=== PATIENT | female | born 1935 | race Caucasian/White ===

== ENCOUNTER 2018-11-28 17:11 | Inpatient (IN) | payer OTHER ==
[2018-11-28] MEDS ORDERED: SODIUM CHLORIDE 0.9% 1000 ML INFUS.BAG IV ONE (17:48)
[2018-11-28] MEDS ORDERED: ACETAMINOPHEN 1000 MG/100 ML VIAL (NON FORMULARY) IVPB ONE (17:48)
[2018-11-28] MEDS ORDERED: ACETAMINOPHEN INJECTION 100 ML IVPB ONE (17:57)
[2018-11-28 18:26] LABS: BASO % 0.5 % (0-2.0); EOS % 1.7 % (0-4.5); HEMATOCRIT 35.9 % (32.4-45.2); HEMOGLOBIN 11.8 GM/dl (10.7-15.3); MCHC 32.8 g/dl (32.0-36.0); MEAN CELL VOLUME 85.3 fl (80-96); MEAN PLT VOLUME 7.4 fl (7.5-11.1); MONO % 4.2 % (3.8-10.2); NEUT % 77.6 % (42.8-82.8); PLATELET COUNT 364 K/MM3 (134-434); RBC 4.21 M/mm3 (3.60-5.2); RDW 13.8 % (11.6-15.6); WHITE BLOOD COUNT 9.5 K/mm3 (4.0-10.8)
[2018-11-28 18:35] LABS: BILIRUBIN,TOTAL 2.1 mg/dl (0.2-1); CALCIUM 9.6 mg/dl (8.5-10); CREATININE 0.7 mg/dl (0.55-1.3); POTASSIUM 4.3 mmol/L (3.5-5.1); TOT PROT 7.9 g/dl (6.4-8.2)
[2018-11-28 18:49] LABS: EPITHELIAL CELLS FEW /hpf
--- NOTE | 2018-11-28 19:18 | PDOC ---
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 Patient reports 3 weeks of N/V with loose stools, saw her PCP 2 weeks ago who recommended drinking lots of fluids and started treating her with 5 days of an unknown antibiotic. Denies any urinary sx. Has continued to have at least 1 loose stool per day with limited PO intake and nausea/vomiting with attempted meals and fluid intakefor the last 3 days. Vomit is NBNB, stools are loose but non-bloody. Yesterday was getting cardiac echo yesterday per PCP request, no cardiac hx, but was having epigastric pain that radiated across R abdomen to back that was relieved when tech placed probe on her abdomen, thought it was gas. Dana fine this morning, but started having same epigastric/RUQ abdominal pain this afternoon that went away over time. Denies fever/chills, headache, chest pain, SOB, weakness. Has history of UC but stools not bloody, not on any medications at this time. Abd surgeries include hysterectomy and appy. <Talib Tarango - Last Filed: 11/28/18 19:09> <Dallas Krause - Last Filed: 12/03/18 14:58> - General Chief Complaint: Pain Stated Complaint: ABDOMINAL PAIN AND RIGHT SIDE PAIN Time Seen by Provider: 11/28/18 17:35 Past History - Past Medical History COPD: No Diabetes: Yes HTN: Yes Hypercholesterolemia: Yes - Surgical History Appendectomy: Yes - Suicide/Smoking/Psychosocial Hx Smoking History: Never smoked Information on smoking cessation initiated: No Hx Alcohol Use: No Drug/Substance Use Hx: No <Talib Tarango - Last Filed: 11/28/18 19:09> <Dallas Krause - Last Filed: 12/03/18 14:58> - Past Medical History Allergies/Adverse Reactions: Allergies Allergy/AdvReac Type Severity Reaction Status Date / Time No Known Allergies Allergy Unverified 11/28/18 17:13 Home Medications: Ambulatory Orders Amlodipine Besylate 5 mg PO DAILY 11/28/18 Aspirin 81 mg PO DAILY 11/28/18 Atorvastatin Ca [Lipitor] 10 mg PO HS 11/28/18 Brimonidine Tartrate [Alphagan P 0.1% -] 1 drop OS DAILY 11/28/18 Calcium Carbonate [Calcium] 500 mg PO DAILY 11/28/18 Cholecalciferol (Vitamin D3) [Vitamin D3 -] 2,000 unit PO DAILY 11/28/18 Colesevelam HCl 3 tab PO BID 11/28/18 Glipizide [Glipizide Xl] 2.5 mg PO DAILY 11/28/18 Losartan Potassium [Cozaar] 100 mg PO DAILY 11/28/18 Metoprolol Tartrate [Lopressor -] 25 mg PO DAILY 11/28/18 Metoprolol Tartrate [Lopressor] 50 mg PO DAILY 11/28/18 Multivit-Min/Iron/Folic/Lutein [Centrum Silver Women Tablet] 1 tab PO DAILY Warba-3/Dha/Epa/Fish Oil [Warba 3 500 Softgel] 1 each PO DAILY 11/28/18 Sitagliptin Phosphate [Januvia] 100 mg PO DAILY 11/28/18 Review of Systems - Review of Systems Constitutional: No: Symptoms Reported HEENTM: No: Symptoms Reported Respiratory: No: Symptoms reported Cardiac (ROS): No: Symptoms Reported ABD/GI: Yes: Diarrhea, Nausea, Vomiting. No: Constipated : No: Burning, Dysuria, Discharge, Frequency, Hematuria, Incontinence, Pain Musculoskeletal: No: Back Pain, Muscle Pain, Muscle Weakness Integumentary: No: Symptoms Reported Neurological: No: Headache, Numbness, Paresthesia, Tingling Endocrine: No: Symptoms Reported Hematologic/Lymphatic: No: Symptoms Reported All Other Systems: Reviewed and Negative <Talib Tarango - Last Filed: 11/28/18 19:09> *Physical Exam - Vital Signs Last Vital Signs Temp Pulse Resp BP Pulse Ox 98.5 F 70 16 172/74 H 100 11/28/18 17:13 11/28/18 17:13 11/28/18 17:13 11/28/18 17:13 11/28/18 17:13 - Physical Exam General Appearance: Yes: Nourished, Appropriately Dressed. No: Apparent Distress HEENT: positive: EOMI, Normal Voice, Symmetrical, Pharynx Normal. negative: Scleral Icterus (R), Scleral Icterus (L), Pharyngeal Erythema, Tonsillar Exudate , Tonsillar Erythema, Rhinorrhea Neck: positive: Tender, Trachea midline, Supple. negative: Normal Thyroid, Lymphadenopathy (R), Lymphadenopathy (L) Respiratory/Chest: positive: Lungs Clear, Normal Breath Sounds. negative: Respiratory Distress Cardiovascular: positive: Regular Rhythm, Regular Rate. negative: Edema, Murmur Gastrointestinal/Abdominal: positive: Normal Bowel Sounds, Soft, Other (well- healed lap scar below umbilicus, negative jorge's). negative: Tender, Guarding , Rebound, Hernia Musculoskeletal: positive: Normal Inspection. negative: CVA Tenderness Extremity: positive: Normal Capillary Refill, Normal Inspection, Normal Range of Motion. negative: Tender Integumentary: positive: Normal Color, Dry, Warm Neurologic: positive: Fully Oriented, Alert, Normal Mood/Affect, Normal Response <Talib Tarango - Last Filed: 11/28/18 19:09> - Vital Signs Last Vital Signs Temp Pulse Resp BP Pulse Ox 97.5 F L 67 18 141/58 L 100 12/03/18 14:56 12/03/18 14:56 12/03/18 14:56 12/03/18 14:56 12/03/18 14:05 <Dallas Krause - Last Filed: 12/03/18 14:58> ED Treatment Course - LABORATORY CBC & Chemistry Diagram: 11/28/18 18:10 11/28/18 18:10 - ADDITIONAL ORDERS Additional order review: Laboratory Results 11/28/18 11/28/18 11/28/18 18:10 18:10 18:10 Sodium Potassium Chloride Carbon Dioxide Anion Gap BUN Creatinine Est GFR (CKD-EPI)AfAm Est GFR (CKD-EPI)NonAf Random Glucose Calcium Total Bilirubin AST ALT Alkaline Phosphatase Troponin I 0.03 Total Protein Albumin Urine Color Yellow Urine Appearance Clear Urine pH 5.0 Urine Protein Trace Urine Glucose (UA) Negative Urine Ketones Negative Urine Blood 2+ H Urine Nitrite Negative Urine Bilirubin Negative Urine Urobilinogen 0.2 Ur Leukocyte Esterase Negative Urine RBC 5-10 Urine WBC 0-2 Ur Transition Epith Cell Few Urine Bacteria Rare Stool Occult Blood Negative 11/28/18 18:10 Sodium 142 Potassium 4.3 Chloride 107 Carbon Dioxide 26 Anion Gap 9 BUN 16.0 Creatinine 0.7 Est GFR (CKD-EPI)AfAm 93.52 Est GFR (CKD-EPI)NonAf 80.69 Random Glucose 148 H Calcium 9.6 Total Bilirubin 2.1 H AST 211 H ALT 248 H Alkaline Phosphatase 267 H Troponin I Total Protein 7.9 Albumin 4.0 Urine Color Urine Appearance Urine pH Urine Protein Urine Glucose (UA) Urine Ketones Urine Blood Urine Nitrite Urine Bilirubin Urine Urobilinogen Ur Leukocyte Esterase Urine RBC Urine WBC Ur Transition Epith Cell Urine Bacteria Stool Occult Blood 11/28/18 18:10 RBC 4.21 MCV 85.3 MCHC 32.8 RDW 13.8 MPV 7.4 L Neutrophils % 77.6 Lymphocytes % 16.0 Monocytes % 4.2 Eosinophils % 1.7 Basophils % 0.5 - RADIOLOGY Radiology Studies Ordered: Category Date Time Status ABDOMEN & PELVIS CT WITH CONTR [CT] Stat CT Scan 11/28/18 18:14 Ordered CHEST PA & LAT [RAD] Stat Radiology 11/28/18 18:13 Ordered ABDOMEN US -LIMITED [US] Stat Ultrasound 11/28/18 18:44 Ordered - Medications Given in the ED: ED Medications Discontinued Medications Generic Name Dose Route Start Last Admin Trade Name Freq PRN Reason Stop Dose Admin Acetaminophen 1,000 mg 11/28/18 17:48 11/28/18 18:17 Ofirmev Injection - IVPB 11/28/18 17:49 1,000 mg ONCE ONE Administration Sodium Chloride 1,000 ml 11/28/18 17:48 11/28/18 18:16 Normal Saline - IV 11/28/18 17:49 1,000 ml ONCE ONE Administration <Talib Tarango - Last Filed: 11/28/18 19:09> - LABORATORY CBC & Chemistry Diagram: 12/03/18 06:54 12/03/18 06:54 - ADDITIONAL ORDERS Additional order review: 11/28/18 18:10 Urine Culture - Final Urine - Urine Clean Catch Klebsiella Pneumoniae 11/28/18 18:10 RBC 4.21 MCV 85.3 MCHC 32.8 RDW 13.8 MPV 7.4 L Neutrophils % 77.6 Lymphocytes % 16.0 Monocytes % 4.2 Eosinophils % 1.7 Basophils % 0.5 - Medications Given in the ED: ED Medications Discontinued Medications Generic Name Dose Route Start Last Admin Trade Name Freq PRN Reason Stop Dose Admin Acetaminophen 1,000 mg 11/28/18 17:48 11/28/18 18:17 Ofirmev Injection - IVPB 11/28/18 17:49 1,000 mg ONCE ONE Administration Acetaminophen 1,000 mg 12/01/18 08:25 12/01/18 08:42 Ofirmev Injection - IVPB 1,000 mg Q6H PRN Administration PAIN OR FEVER Amlodipine Besylate 5 mg 11/29/18 10:00 12/03/18 09:01 Norvasc - PO 5 mg DAILY PEEWEE Administration Brimonidine Tartrate 1 drop 11/29/18 10:00 12/03/18 09:30 Alphagan P 0.1% - OS 1 drop DAILY PEEWEE Administration Piperacillin Sod/Tazobactam 100 mls @ 200 mls/hr 11/28/18 22:13 11/28/18 22: 30 Sod 4.5 gm/ Dextrose IVPB 11/28/18 22:42 200 mls/hr ONCE ONE Administration Protocol Piperacillin Sod/Tazobactam 50 mls @ 100 mls/hr 11/29/18 06:00 11/29/18 06:23 Sod 2.25 gm/ Dextrose IVPB 11/29/18 22:29 100 mls/hr Q8H PEEWEE Administration Protocol Sodium Chloride 1,000 mls @ 100 mls/hr 11/28/18 23:24 12/03/18 09:32 Normal Saline - IV 100 mls/hr ASDIR PEEWEE Administration Piperacillin Sod/Tazobactam 50 mls @ 100 mls/hr 11/29/18 10:30 12/03/18 09:02 Sod 3.375 gm/ Dextrose IVPB 100 mls/hr Q8H-IV PEEWEE Administration Protocol Indomethacin 50 mg 11/29/18 13:21 11/29/18 19:22 Indocin Suppository - MD 11/29/18 13:22 Not Given ONCE ONE Indomethacin 100 mg 11/29/18 13:45 11/29/18 19:22 Indocin Suppository - MD 11/29/18 13:46 Not Given ONCE ONE Insulin Aspart 1 units 11/29/18 07:00 11/30/18 11:15 Novolog Vial SQ Not Given ACHS [facility] Protocol Insulin Aspart 1 vial 11/30/18 22:00 12/03/18 06:18 Novolog Vial Sliding Scale - SQ Not Given ACHS [facility] Protocol Lorazepam 0.5 mg 11/29/18 08:45 11/29/18 10:08 Ativan Injection - IVPUSH 11/29/18 08:46 0.5 mg ONCE ONE Administration Losartan Potassium 100 mg 11/29/18 10:00 12/03/18 09:00 Cozaar - PO 100 mg DAILY PEEWEE Administration Magnesium Sulfate 1 gm 12/02/18 09:15 12/02/18 10:06 Magnesium Sulfate IVPB 12/02/18 09:16 1 gm ONCE ONE Administration Metoprolol Tartrate 50 mg 11/29/18 10:00 12/03/18 09:00 Lopressor - PO 50 mg DAILY PEEWEE Administration Metoprolol Tartrate 25 mg 11/29/18 22:00 12/02/18 21:12 Lopressor - PO 25 mg HS PEEWEE Administration Pneumococcal 13-Valent Conj Vacc 0.5 ml 11/29/18 10:00 11/29/18 09:50 Prevnar 13 Syringe - IM 11/29/18 10:01 Not Given .ONCE ONE Potassium Chloride 40 meq 12/02/18 09:00 12/02/18 10:06 Potassium Chloride Oral Liquid PO 12/02/18 09:01 40 meq ONCE ONE Administration Sodium Chloride 1,000 ml 11/28/18 17:48 11/28/18 18:16 Normal Saline - IV 11/28/18 17:49 1,000 ml ONCE ONE Administration Tramadol HCl 50 mg 12/01/18 03:37 12/01/18 03:52 Ultram - PO 12/01/18 03:38 50 mg ONCE ONE Administration <Dallas Krause - Last Filed: 12/03/18 14:58> Medical Decision Making - Medical Decision Making 11/28/18 18:09 Preeti Sung is an 83F with PMH HTN, NIDDM, 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 Given patient history of epigastric pain radiating across R side to back in an elderly woman with DM, ddx includes choledocholithiasis/cholecystitis/ cholangitis vs. pancreatitis vs. AAA vs. KS vs. gastroenteritis vs. C.diff vs. gastritis vs. UTI vs. Pyelo vs. renal stone. Will evaluate with CMP, CBC, CP, ECG, CXR, lipase, hemoccult, UA. 11/28/18 18:23 CT abd with PO and IV contrast ordered given UC history and to evaluate for abd pain in high risk pt. 11/28/18 18:30 UA shows blood in urine, PO contrast cancelled. 11/28/18 19:04 Labs show no increased WBC but has transaminitis concerning for gallbladder pathology such as stone obstruction. ECG WNL, CP WNL. UA shows 2+ blood concerning for renal stone. POCUS reveals moderate L-sided hydronephrosis with grossly normal R kidney and normal gallbladder without pericholecystic fluid, CBD dilation, or stones noted. Will proceed with CT abd. Signed out to Dr. Neal and medical student July for continuation of care. <Talib Tarango - Last Filed: 11/28/18 19:09> *DC/Admit/Observation/Transfer <Talib Tarango - Last Filed: 11/28/18 19:09> <Dallas Krause - Last Filed: 12/03/18 14:58> Diagnosis at time of Disposition: Abdominal pain Qualifiers: Abdominal location: epigastric Qualified Code(s): R10.13 - Epigastric pain - Discharge Dispostion Disposition: HOME Condition at time of disposition: Fair
--- NOTE | 2018-11-28 20:45 | PDOC ---
*Physical Exam - Vital Signs Last Vital Signs Temp Pulse Resp BP Pulse Ox 98 F 72 16 179/82 H 100 11/28/18 19:36 11/28/18 19:36 11/28/18 19:36 11/28/18 19:36 11/28/18 19:36 ED Treatment Course - LABORATORY CBC & Chemistry Diagram: 11/28/18 18:10 11/28/18 18:10 - ADDITIONAL ORDERS Additional order review: Laboratory Results 11/28/18 11/28/18 11/28/18 18:10 18:10 18:10 Sodium Potassium Chloride Carbon Dioxide Anion Gap BUN Creatinine Est GFR (CKD-EPI)AfAm Est GFR (CKD-EPI)NonAf Random Glucose Calcium Total Bilirubin AST ALT Alkaline Phosphatase Troponin I 0.03 Total Protein Albumin Lipase 111 Urine Color Urine Appearance Urine pH Urine Protein Urine Glucose (UA) Urine Ketones Urine Blood Urine Nitrite Urine Bilirubin Urine Urobilinogen Ur Leukocyte Esterase Urine RBC Urine WBC Ur Transition Epith Cell Urine Bacteria Stool Occult Blood Negative 11/28/18 11/28/18 18:10 18:10 Sodium 142 Potassium 4.3 Chloride 107 Carbon Dioxide 26 Anion Gap 9 BUN 16.0 Creatinine 0.7 Est GFR (CKD-EPI)AfAm 93.52 Est GFR (CKD-EPI)NonAf 80.69 Random Glucose 148 H Calcium 9.6 Total Bilirubin 2.1 H AST 211 H ALT 248 H Alkaline Phosphatase 267 H Troponin I Total Protein 7.9 Albumin 4.0 Lipase Urine Color Yellow Urine Appearance Clear Urine pH 5.0 Urine Protein Trace Urine Glucose (UA) Negative Urine Ketones Negative Urine Blood 2+ H Urine Nitrite Negative Urine Bilirubin Negative Urine Urobilinogen 0.2 Ur Leukocyte Esterase Negative Urine RBC 5-10 Urine WBC 0-2 Ur Transition Epith Cell Few Urine Bacteria Rare Stool Occult Blood 11/28/18 18:10 RBC 4.21 MCV 85.3 MCHC 32.8 RDW 13.8 MPV 7.4 L Neutrophils % 77.6 Lymphocytes % 16.0 Monocytes % 4.2 Eosinophils % 1.7 Basophils % 0.5 - Medications Given in the ED: ED Medications Discontinued Medications Generic Name Dose Route Start Last Admin Trade Name Freq PRN Reason Stop Dose Admin Acetaminophen 1,000 mg 11/28/18 17:48 11/28/18 18:17 Ofirmev Injection - IVPB 11/28/18 17:49 1,000 mg ONCE ONE Administration Sodium Chloride 1,000 ml 11/28/18 17:48 11/28/18 18:16 Normal Saline - IV 11/28/18 17:49 1,000 ml ONCE ONE Administration Progress Note - Progress Note Progress Note: Care of this this patient was transferred [place] Dr. Krause and the EM resident at 1900 hrs. Patient is an elderly 83-year-old female with upper abdominal pain that is intermittent and somewhat colicky in nature. Patient has a workup pending. Patient does have a normal white count and her labs are remarkable for elevated liver enzymes, elevated bili. Patient has an ultrasound and CAT scan pending. Patient will be admitted to an inpatient bed for MRCP and GI consult *DC/Admit/Observation/Transfer Diagnosis at time of Disposition: Abdominal pain Qualifiers: Abdominal location: epigastric Qualified Code(s): R10.13 - Epigastric pain - Discharge Dispostion Condition at time of disposition: Fair Decision to Admit order: Yes - Referrals Referrals: Shakeel Wilhelm MD [Primary Care Provider] - - Patient Instructions - Post Discharge Activity
[2018-11-28] MEDS ORDERED: PIPERACILLIN/TAZOB 4.5 GM 4.5 GM in DEXTROSE 5%-WATER 100 ML IVPB ONE (22:13)
[2018-11-28] MEDS ORDERED: PIPERACILLIN/TAZOBACTAM 4.5 GM VIAL IVPB ONE (22:32)
--- NOTE | 2018-11-28 22:43 | HP ---
CHIEF COMPLAINT: Nausea, vomiting, abdominal pain PCP: Dr. Wilhelm HISTORY OF PRESENT ILLNESS: 83 year-old female with a PMH significant for HTN, Type II NIDDM, and ulcerative colitis who presented to ED today for evaluation of nausea, vomiting, and abdominal pain. About three weeks ago patient began experiencing malaise, nausea, and intermittent episodes of vomiting after eating. She went to see her PCP several times during this period. He did blood work which was reportedly unremarkable. Urinalysis showed a UTI and patient completed a 5-day course of macrobid. The symptoms persisted. Over the past several days the patient also developed abdominal pain focused in the RUQ. Today the RUQ pain began radiating to the back as well. She has had several episodes of diarrhea over the past 3 weeks as well. Patient was advised by PCP to come to the ED. Patient denies fever, sweats, chills. 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 [employer] Smoking: no Alcohol: no Drugs: no Family History: Mother 86 Parkinsons; father 63 heart problems; brother alive 79 with leukemia; children, grandchildren, greatgrandchildren a&w Allergies No Known Allergies Allergy (Unverified 11/28/18 17:13) HOME MEDICATIONS: Home Medications Medication Instructions Recorded Amlodipine Besylate 5 mg PO DAILY 11/28/18 Aspirin 81 mg PO DAILY 11/28/18 Atorvastatin Ca [Lipitor] 10 mg PO HS 11/28/18 Brimonidine Tartrate [Alphagan P 1 drop OS DAILY 11/28/18 0.1% -] Calcium Carbonate [Calcium] 500 mg PO DAILY 11/28/18 Cholecalciferol (Vitamin D3) 2,000 unit PO DAILY 11/28/18 [Vitamin D3 -] Colesevelam HCl 3 tab PO BID 11/28/18 Glipizide [Glipizide Xl] 2.5 mg PO DAILY 11/28/18 Losartan Potassium [Cozaar] 100 mg PO DAILY 11/28/18 Metoprolol Tartrate [Lopressor -] 25 mg PO DAILY 11/28/18 Metoprolol Tartrate [Lopressor] 50 mg PO DAILY 11/28/18 Multivit-Min/Iron/Folic/Lutein 1 tab PO DAILY 11/28/18 [Centrum Silver Women Tablet] [place]-3/Dha/Epa/Fish Oil [[place] 3 1 each PO DAILY 11/28/18 500 Softgel] Sitagliptin Phosphate [Januvia] 100 mg PO DAILY 11/28/18 REVIEW OF SYSTEMS CONSTITUTIONAL: +malaise, loss of appetite Absent: fever, chills, diaphoresis, generalized weakness, weight change HEENT: Absent: rhinorrhea, nasal congestion, throat pain, throat swelling, difficulty swallowing, mouth swelling, ear pain, eye pain, visual changes CARDIOVASCULAR: Absent: chest pain, syncope, palpitations, irregular heart rate, lightheadedness , peripheral edema RESPIRATORY: Absent: cough, shortness of breath, dyspnea with exertion, orthopnea, wheezing, stridor, hemoptysis GASTROINTESTINAL: +nausea, vomiting, abdominal pain, diarrhea Absent: abdominal distension, constipation, melena, hematochezia GENITOURINARY: Absent: dysuria, frequency, urgency, hesitancy, hematuria, flank pain, genital pain MUSCULOSKELETAL: Absent: myalgia, arthralgia, joint swelling, back pain, neck pain SKIN: Absent: rash, itching, pallor HEMATOLOGIC/IMMUNOLOGIC: Absent: easy bleeding, easy bruising, lymphadenopathy, frequent infections ENDOCRINE: Absent: unexplained weight gain, unexplained weight loss, heat intolerance, cold intolerance NEUROLOGIC: Absent: headache, focal weakness or paresthesias, dizziness, unsteady gait, seizure, mental status changes, bladder or bowel incontinence PSYCHIATRIC: Absent: anxiety, depression, suicidal or homicidal ideation, hallucinations. PHYSICAL EXAMINATION Vital Signs - 24 hr 11/28/18 11/28/18 17:13 19:36 Temperature 98.5 F 98 F Pulse Rate 70 Pulse Rate [ 72 Radial] Respiratory 16 16 Rate Blood Pressure 172/74 H Blood Pressure 179/82 H [Arm] O2 Sat by Pulse 100 100 Oximetry (%) GENERAL: Awake, alert, and fully oriented, in no acute distress. HEAD: Normal with no signs of trauma. EYES: Pupils equal, round and reactive to light, extraocular movements intact, sclera anicteric, conjunctiva clear. LUNGS: Breath sounds equal, clear to auscultation bilaterally. No wheezes, and no crackles. No accessory muscle use. HEART: Regular rate and rhythm, S1 and S2 ABDOMEN: Soft, mild RUQ tenderness, not distended, normoactive bowel sounds, no guarding, no rebound tenderness MUSCULOSKELETAL: Normal range of motion at all joints. No bony deformities or tenderness. No CVA tenderness. UPPER EXTREMITIES: 2+ pulses, warm, well-perfused. No cyanosis. No clubbing. No peripheral edema. LOWER EXTREMITIES: 2+ pulses, warm, well-perfused. No calf tenderness. No peripheral edema. NEUROLOGICAL: Cranial nerves II-XII intact. Normal speech. Normal gait. Laboratory Results - last 24 hr 11/28/18 11/28/18 11/28/18 18:10 18:10 18:10 WBC 9.5 RBC 4.21 Hgb 11.8 Hct 35.9 MCV 85.3 MCH 28.0 MCHC 32.8 RDW 13.8 Plt Count 364 MPV 7.4 L Absolute Neuts (auto) 7.4 Neutrophils % 77.6 Lymphocytes % 16.0 Monocytes % 4.2 Eosinophils % 1.7 Basophils % 0.5 Sodium 142 Potassium 4.3 Chloride 107 Carbon Dioxide 26 Anion Gap 9 BUN 16.0 Creatinine 0.7 Est GFR (CKD-EPI)AfAm 93.52 Est GFR (CKD-EPI)NonAf 80.69 Random Glucose 148 H Calcium 9.6 Total Bilirubin 2.1 H AST 211 H ALT 248 H Alkaline Phosphatase 267 H Troponin I Total Protein 7.9 Albumin 4.0 Lipase Urine Color Yellow Urine Appearance Clear Urine pH 5.0 Urine Protein Trace Urine Glucose (UA) Negative Urine Ketones Negative Urine Blood 2+ H Urine Nitrite Negative Urine Bilirubin Negative Urine Urobilinogen 0.2 Ur Leukocyte Esterase Negative Urine RBC 5-10 Urine WBC 0-2 Ur Transition Epith Cell Few Urine Bacteria Rare Stool Occult Blood 11/28/18 11/28/18 11/28/18 18:10 18:10 18:10 WBC RBC Hgb Hct MCV MCH MCHC RDW Plt Count MPV Absolute Neuts (auto) Neutrophils % Lymphocytes % Monocytes % Eosinophils % Basophils % Sodium Potassium Chloride Carbon Dioxide Anion Gap BUN Creatinine Est GFR (CKD-EPI)AfAm Est GFR (CKD-EPI)NonAf Random Glucose Calcium Total Bilirubin AST ALT Alkaline Phosphatase Troponin I 0.03 Total Protein Albumin Lipase 111 Urine Color Urine Appearance Urine pH Urine Protein Urine Glucose (UA) Urine Ketones Urine Blood Urine Nitrite Urine Bilirubin Urine Urobilinogen Ur Leukocyte Esterase Urine RBC Urine WBC Ur Transition Epith Cell Urine Bacteria Stool Occult Blood Negative ASSESSMENT/PLAN: 83 year-old female with a PMH significant for HTN, Type II NIDDM, and ulcerative colitis. Admitted for acute calculus cholecystitis with dilated CBD. Acute calculus cholecystitis Dilated common bile duct Hyperbilirubinema Transaminitis --11/28 CTAP: CBD dilated to 1cm; gallblader overdistention; cholelithiasis --11/28 US: acute calculus cholecystitis --concern for choledocholelithiais --empiric Zosyn --MRCP ordered --ID consult --GI consult Dr. Rascon --place surgery consult in am Right hydroureteronephrosis --seen on CT --no obvious obstructing stone --signs on CT of pyelo v. current/recent obstruction --renal function presently stable --MRI ordered --antibiotics as above Hypertension --BP elevated in ED --continue amlodipine, metoprolol Type II NIDDM --Novolog sliding scale Ulcerative colitis --stable FEN Fluids: NS@100mL/hr Electrolytes: replete as indicated Nutrition: NPO DVT prophylaxis: avoid chemicl prophylaxis due to possible surgical intervention ; SCS, oob, ambulation Dispo: transfer to [facility] for MRCP possible ERCP. Full code. Visit type - Emergency Visit Emergency Visit: Yes ED Registration Date: 11/28/18 Care time: The patient presented to the Emergency Department on the above date and was hospitalized for further evaluation of their emergent condition. - New Patient This patient is new to me today: Yes Date on this admission: 11/29/18 - Critical Care Critical Care patient: No
[2018-11-28] MEDS ORDERED: SODIUM CHLORIDE 1,000 ML IV SCH (23:15)
[2018-11-29 01:29] VITALS: BMI 23.3
[2018-11-29] MEDS: SODIUM CHLORIDE 1,000 ML IV SCH ×2 (01:42→20:11)
[2018-11-29] MEDS ORDERED: PIPERACILLIN/TAZOB 2.25 GM 2.25 GM in DEXTROSE 5%-WATER - 50 ML IVPB SCH (06:00)
[2018-11-29] MEDS ORDERED: DEXTROSE 5%-WATER - 50 ML IVPB ONE ×3 (06:12→16:53)
[2018-11-29] MEDS ORDERED: PIPERACILLIN/TAZOBACTAM 2.25 GM VIAL IVPB ONE (06:12)
[2018-11-29] MEDS: INSULIN (NOVOLOG) ASPART 100 UNITS/ML 10ML VIAL SQ SCH ×4 (06:23→21:52)
--- NOTE | 2018-11-29 08:23 | PN ---
Progress Note, Physician Chief Complaint: Mild RUQ tenderness. Awaiting MRCP/ERCP History of Present Illness: 83 year-old female with a PMH significant for HTN, Type II NIDDM, and ulcerative colitis who presented to ED today for evaluation of nausea, vomiting, and abdominal pain. About three weeks ago patient began experiencing malaise, nausea, and intermittent episodes of vomiting after eating. She went to see her PCP several times during this period. He did blood work which was reportedly unremarkable. Urinalysis showed a UTI and patient completed a 5-day course of macrobid. The symptoms persisted. Over the past several days the patient also developed abdominal pain focused in the RUQ. Yesterday the RUQ pain began radiating to the back as well. She has had several episodes of diarrhea over the past 3 weeks as well. Patient was advised by PCP to come to the ED. Patient denies fever, sweats, chills. Patient was transfered overnight from [facility] for further management - Current Medication List Current Medications: Active Medications Amlodipine Besylate (Norvasc -) 5 mg PO DAILY [facility] Brimonidine Tartrate (Alphagan P 0.1% -) 1 drop OS DAILY [facility] Piperacillin Sod/Tazobactam (Sod 2.25 gm/ Dextrose) 50 mls @ 100 mls/hr IVPB Q8H-IV [facility]; Protocol Piperacillin Sod/Tazobactam (Sod 2.25 gm/ Dextrose) 50 mls @ 100 mls/hr IVPB Q8H [facility]; Protocol Stop: 11/29/18 22:29 Last Admin: 11/29/18 06:23 Dose: 100 mls/hr Sodium Chloride (Normal Saline -) 1,000 mls @ 100 mls/hr IV ASDIR [facility] Last Admin: 11/29/18 01:42 Dose: 100 mls/hr Insulin Aspart (Novolog Vial) 1 units SQ ACHS [facility]; Protocol Last Admin: 11/29/18 06:23 Dose: Not Given Losartan Potassium (Cozaar -) 100 mg PO DAILY [facility] Metoprolol Tartrate (Lopressor -) 50 mg PO DAILY [facility] Metoprolol Tartrate (Lopressor -) 25 mg PO HS [facility] Pneumococcal 13-Valent Conj Vacc (Prevnar 13 Syringe -) 0.5 ml IM .ONCE ONE Stop: 11/29/18 10:01 - Objective Vital Signs: Vital Signs Temperature 98.5 F 11/29/18 06:00 Pulse Rate 66 11/29/18 06:00 Respiratory Rate 18 11/29/18 06:00 Blood Pressure 141/61 11/29/18 06:00 O2 Sat by Pulse Oximetry (%) 98 11/29/18 02:37 Constitutional: Yes: Well Nourished, No Distress, Calm Eyes: Yes: WNL, Conjunctiva Clear, EOM Intact HENT: Yes: WNL, Atraumatic, Normocephalic Neck: Yes: WNL, Supple, Trachea Midline Cardiovascular: Yes: WNL, Regular Rate and Rhythm Respiratory: Yes: WNL, Regular, CTA Bilaterally Gastrointestinal: Yes: WNL, Normal Bowel Sounds, Soft, Tenderness (RUQ) ...Rectal Exam: Yes: Deferred Genitourinary: Yes: WNL Breast(s): Yes: WNL Musculoskeletal: Yes: WNL Extremities: Yes: WNL Edema: No Peripheral Pulses: Left Radial: 2+, Right Radial: 2+, Left Doralis Pedis: 2+, Right Dorsalis Pedis: 2+, Left Femoral: 2+, Right Femoral: 2+ Integumentary: Yes: WNL Neurological: Yes: WNL, Alert, Oriented ...Motor Strength: WNL Psychiatric: Yes: WNL, Alert, Oriented Labs: CBC, BMP 11/28/18 18:10 11/28/18 18:10 - ....Imaging Cat Scan: Report Reviewed ( Common bile duct dilatation is noted with a 1 cm diameter. Gallbladder overdistention is also seen. Cholelithiasis is noted without CT evidence of acute cholecystitis. No gross intraductal calculus is within the limitations of CT. There is also no obvious pancreatic mass lesion. MRI/MRCP evaluation is suggested.) MRI: Report Reviewed (MRCP:) Other: Pending (ERCP) Problem List - Problems (1) Preventive measure Assessment/Plan: FEN NPO for procedures, IVF monitor electrolytes DVT ambulatory Dispo maintain an inpatient full code discharge planning Code(s): Z29.9 - ENCOUNTER FOR PROPHYLACTIC MEASURES, UNSPECIFIED (2) Abdominal pain Assessment/Plan: MRCP/ERCP to be done maintain NPO Ofrimev prn for pain IVF antiemetics prn Code(s): R10.9 - UNSPECIFIED ABDOMINAL PAIN Qualifiers: Abdominal location: epigastric Qualified Code(s): R10.13 - Epigastric pain (3) Cholecystitis Assessment/Plan: c/w IV zosyn NPO appreciate GI consultation Gen surgery to follow if needed Code(s): K81.9 - CHOLECYSTITIS, UNSPECIFIED (4) Choledocholithiasis Assessment/Plan: Given acute upper / RUQ abdominal pain associated with new biliary ductal dilatation and the cholestatic abnormal liver chemistry pattern as well as MRCP findings, concern would be for passed or retained CBD stone (given that liver chemistries have risen from yesterday). I have discussed the possibility of ERCP with Ms. Sung for further evaluation. We discussed potential risks of the procedure like but not limited to bleeding, perforation requiring surgery to repair, infection, sedation medication effects and pancreatitis ( occurring in 5-10% of cases per the literature) all of which could be potentially life threatening. She has agreed to the procedure if it was felt to be medically necessary. Case discussed with Dr. Tom Ferris, biliary endoscopist who will be available to perform the procedure. For now: NPO IV Hydration Type and screen ordered stat Patient currently on zosyn Surgical evaluation. Should have cholecystectomy prior to discharge Code(s): K80.50 - CALCULUS OF BILE DUCT W/O CHOLANGITIS OR CHOLECYST W/O OBST (5) Ulcerative colitis Assessment/Plan: c/w colesevelelam when no longer NPO Code(s): K51.90 - ULCERATIVE COLITIS, UNSPECIFIED, WITHOUT COMPLICATIONS (6) HTN (hypertension) Assessment/Plan: normotenisve at this time NPO will dose with IV if needed Code(s): I10 - ESSENTIAL (PRIMARY) HYPERTENSION (7) Diabetes mellitus, insulin dependent (IDDM), controlled Assessment/Plan: BGM monitor with novolog sliding scale Code(s): E11.9 - TYPE 2 DIABETES MELLITUS WITHOUT COMPLICATIONS; Z79.4 - HOUSING GRANT 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 - New Patient This patient is new to me today: Yes Date on this admission: 11/29/18 - Critical Care Critical Care patient: No - Discharge Referral Referred to [facility] Med P.C.: No
--- NOTE | 2018-11-29 08:32 | PN ---
Progress Note, Physician - Current Medication List Current Medications: Active Medications Amlodipine Besylate (Norvasc -) 5 mg PO DAILY [facility] Brimonidine Tartrate (Alphagan P 0.1% -) 1 drop OS DAILY [facility] Piperacillin Sod/Tazobactam (Sod 2.25 gm/ Dextrose) 50 mls @ 100 mls/hr IVPB Q8H-IV [facility]; Protocol Piperacillin Sod/Tazobactam (Sod 2.25 gm/ Dextrose) 50 mls @ 100 mls/hr IVPB Q8H [facility]; Protocol Stop: 11/29/18 22:29 Last Admin: 11/29/18 06:23 Dose: 100 mls/hr Sodium Chloride (Normal Saline -) 1,000 mls @ 100 mls/hr IV ASDIR [facility] Last Admin: 11/29/18 01:42 Dose: 100 mls/hr Insulin Aspart (Novolog Vial) 1 units SQ ACHS [facility]; Protocol Last Admin: 11/29/18 06:23 Dose: Not Given Losartan Potassium (Cozaar -) 100 mg PO DAILY [facility] Metoprolol Tartrate (Lopressor -) 50 mg PO DAILY [facility] Metoprolol Tartrate (Lopressor -) 25 mg PO HS [facility] Pneumococcal 13-Valent Conj Vacc (Prevnar 13 Syringe -) 0.5 ml IM .ONCE ONE Stop: 11/29/18 10:01 - Objective Vital Signs: Vital Signs Temperature 98.5 F 11/29/18 06:00 Pulse Rate 66 11/29/18 06:00 Respiratory Rate 18 11/29/18 06:00 Blood Pressure 141/61 11/29/18 06:00 O2 Sat by Pulse Oximetry (%) 98 11/29/18 02:37 Labs: CBC, BMP 11/28/18 18:10 11/28/18 18:10 - ....Imaging Cat Scan: Report Reviewed (Common bile duct dilatation is noted with a 1 cm diameter. Gallbladder overdistention is also seen. Cholelithiasis is noted without CT evidence of acute cholecystitis. No gross intraductal calculus is within the limitations of CT. There is also no obvious pancreatic mass lesion. MRI/MRCP evaluation is suggested.) Ultrasound: Report Reviewed ( Findings are noted as discussed above suggestive of acute calculus cholecystitis. The common bile duct is dilated with a 1 cm diameter. No gross intraductal calculus is seen on sonography. MRI/ MRCP evaluation is suggested. Diffuse hepatic steatosis is noted.)
[2018-11-29] MEDS ORDERED: LORazepam 2 MG/ML SDV VIAL IVPUSH ONE (08:45)
[2018-11-29 08:55] LABS: BASO % 0.8 % (0-2.0); EOS % 1.2 % (0-4.5); HEMATOCRIT 31.9 % (32.4-45.2); HEMOGLOBIN 10.7 GM/dL (10.7-15.3); LYMPH % 15.7 % (8-40); MCHC 33.4 g/dl (32.0-36.0); MEAN CELL VOLUME 83.9 fl (80-96); MEAN PLT VOLUME 7.4 fl (7.5-11.1); MONO % 6.1 % (3.8-10.2); NEUT % 76.2 % (42.8-82.8); PLATELET COUNT 253 K/MM3 (134-434); RBC 3.81 M/mm3 (3.60-5.2); RDW 14.5 % (11.6-15.6); WHITE BLOOD COUNT 6.2 K/mm3 (4.0-10.0)
[2018-11-29 09:23] LABS: ALBUMIN 3.4 g/dl (3.4-5.0); BILIRUBIN,TOTAL 2.5 mg/dL (0.2-1); BLOOD UREA NITROGEN 8.6 mg/dL (7-18); CALCIUM 9.1 mg/dL (8.5-10.1); CREATININE 0.7 mg/dL (0.55-1.3); PHOSPHOROUS 3.1 mg/dL (2.5-4.9); POTASSIUM 4.2 mmol/L (3.5-5.1); TOT PROT 6.8 g/dl (6.4-8.2)
[2018-11-29] MEDS: LOSARTAN POTASSIUM 50 MG TABLET (FP) PO SCH (09:48)
[2018-11-29] MEDS: METOPROLOL TARTRATE 50 MG TABLET (FP) PO SCH (09:48)
[2018-11-29] MEDS: amLODIPine BESYLATE 5 MG TABLET (FP) PO SCH (09:48)
[2018-11-29] MEDS: BRIMONIDINE TARTRATE 0.1% OPHTHALMIC 5 ML BOTTLE OS SCH (09:51)
[2018-11-29] MEDS ORDERED: PNEUMOC 13-VAL CONJ-DIP CRM/PF 0.5 ML DISP.SYRIN IM ONE (10:00)
--- NOTE | 2018-11-29 10:15 | PN ---
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, vomiting, diarrhea, abdominal pain saw here pcp was treated for UTI with macrobid +5 pound weight loss, no fever or chills admitted for further eval labs notable for abnormal LFTs ct scan with dilated CBD and cholelithaisis, mild bilateral hydronephrosis with no obstruction noted sonogram with possible cholycystitis choledocholithiasis possible cholycystitis continue zosyn, cultures pending for MRCP today with GI f/u surgery consultation pending Problem List - Problems (1) Choledocholithiasis Code(s): K80.50 - CALCULUS OF BILE DUCT W/O CHOLANGITIS OR CHOLECYST W/O OBST (2) Cholecystitis Code(s): K81.9 - CHOLECYSTITIS, UNSPECIFIED
--- NOTE | 2018-11-29 11:26 | CONS ---
INFECTIOUS DISEASE CONSULTATION DATE OF CONSULTATION: DATE OF DICTATION: 11/29/2018 REQUESTING PHYSICIAN: The hospitalist service. This is an 83-year-old woman. She has a history of diabetes, hypertension, hyperlipidemia. 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. Two to 3 weeks ago, she started having some intermittent nausea, vomiting, diarrhea, and abdominal pain. She saw her PCP who thought she may have a urinary tract infection. She was treated with a 5-day course of Macrobid. She continued to sort of be limited in her eating. She was afraid she would throw up. Her abdominal pain worsened, and she presented to the ER. She has had a 5-pound weight loss, and she has had no fevers or chills. There is no history of any recent travel. Last trip was in July to [place], [place]. In the emergency room, she was noted to have abnormal LFTs. She had a CAT scan that showed a dilated CBD and cholelithiasis, mild bilateral hydronephrosis with no obstruction noted. She had an abdominal sonogram with possible cholecystitis. She was transferred from [place] where she was originally admitted to [facility] for MRCP, which has been scheduled. She continues to have some abdominal discomfort that she reports is improved. ALLERGIES: She has no known drug allergies. MEDICATIONS AN OUTPATIENT: Include colesevelam hydrochloride, Alphagan eye drops, calcium, amlodipine, omega-3, vitamin D, multivitamins, losartan, Lipitor, glipizide, Januvia, and Lopressor. PAST MEDICAL HISTORY: Notable for diabetes, hypertension, and hyperlipidemia. SURGICAL HISTORY: Appendectomy and hysterectomy. SOCIAL HISTORY: She resides in the community. There is no history of any cigarette, alcohol, or substance use. She is . She lives alone, and she works as a volunteer here at [employer]. REVIEW OF SYSTEMS: She has no chest pain. She has no shortness of breath. She has no cough, difficulty swallowing, and she has no dysuria. The rest is as per HPI. PHYSICAL EXAMINATION: General: She is awake and alert. She looks younger than her stated age of 83. Vital Signs: Temperature is 98.5. She has had no fever since admission. Pulse is 66. Blood pressure 141/61. Respiratory rate is 18. She is saturating 98% on room air. HEENT: She is normocephalic. Her eyes are anicteric. Neck: Supple. Lungs: Clear to auscultation. Heart: Regular rate and rhythm. Abdomen: She has mid-epigastric and some right upper quadrant discomfort to palpation. She has good bowel sounds. She has no distention. Extremities: Without edema. LABORATORY DATA: White count is 6.2, hemoglobin 10.7, platelets are 253. Her BUN and creatinine are normal, 8/0.7. Glucose of 152. Total bilirubin of 2.5 with an AST of 332, ALT of 371, alkaline phosphatase at 294. Urinalysis is negative for leukocytes, has 2+ blood. Stool occult blood is negative. Urine and blood cultures are pending. In summary, this is an 83-year-old woman with probable choledocholithiasis, possible cholecystitis. I would continue Zosyn to cover for biliary pathogens. Cultures are pending. She is scheduled for MRCP today with GI followup for possible endoscopy. Surgical consultation is pending as well. Further recommendations to follow. Yoni [id number]
[2018-11-29] MEDS ORDERED: PIPERACILLIN/TAZOBACTAM 3.375 GM VIAL IVPB ONE ×2 (11:39→16:53)
[2018-11-29] MEDS: PIPERACILLIN/TAZOB 3.375 GM 3.375 GM in DEXTROSE 5%-WATER - 50 ML IVPB SCH ×2 (11:48→17:48)
--- NOTE | 2018-11-29 11:51 | CON.GI ---
Consult Consult Specialty:: GI Referred by:: Hospitalist Service Reason for Consultation:: Abnormal LFTs - History of Present Illness Chief Complaint: Malaise, upper abdominal pain History of Present Illness: 83F admitted through [facility] ER for evaluation of upper abdominal pain and RUQ that radiated to the back. This began yesterday evening and became progressively more intense. She has been exeperincing generalized malaise over the last few weeks and was diagnosed with a UTI 2 weeks ago for which she was given nitrofurantoin by her PMD Dr. Wilhelm. In the ER. she was noted to be afebrile with normal CBC. transaminases, alkaline phosphatase and bilirubin were elevated. Abdominal US performed revealed distended gallbladder with stones and a CBD of 1cm. The CBD dilatation was new when compared to previous imaging. CT scan performed with IV contrast revealed question of mild bilateral hydronephrosis and heterogeneous left cortical renal enhancement that would require further follow-up. No ureteral stones were noted. She has a history of ulcerative colitis and has not had a colonoscopy in 10 years. She denies rectal bleeding / diarrhea aside from 1 episode of diarrhea 2 weeks ago. I discussed today's MRCP with Dr. Zhu. He noted sludge and stoens in the gallbladder as well as sludge in the CBD. He questioned if there could be a retained small stone / edema from passed at the distal CBD. There is no family history of colorectal cancer or other GI malignancy. 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 Place of : [facility] History of Recent Travel: No Home Medications - Allergies Allergies/Adverse Reactions: Allergies Allergy/AdvReac Type Severity Reaction Status Date / Time No Known Allergies Allergy Unverified 11/28/18 17:13 - Home Medications Home Medications: Ambulatory Orders Amlodipine Besylate 5 mg PO DAILY 11/28/18 Aspirin 81 mg PO DAILY 11/28/18 Atorvastatin Ca [Lipitor] 10 mg PO HS 11/28/18 Brimonidine Tartrate [Alphagan P 0.1% -] 1 drop OS DAILY 11/28/18 Calcium Carbonate [Calcium] 500 mg PO DAILY 11/28/18 Cholecalciferol (Vitamin D3) [Vitamin D3 -] 2,000 unit PO DAILY 11/28/18 Colesevelam HCl 3 tab PO BID 11/28/18 Glipizide [Glipizide Xl] 2.5 mg PO DAILY 11/28/18 Losartan Potassium [Cozaar] 100 mg PO DAILY 11/28/18 Metoprolol Tartrate [Lopressor -] 25 mg PO DAILY 11/28/18 Metoprolol Tartrate [Lopressor] 50 mg PO DAILY 11/28/18 Multivit-Min/Iron/Folic/Lutein [Centrum Silver Women Tablet] 1 tab PO DAILY [place]-3/Dha/Epa/Fish Oil [[place] 3 500 Softgel] 1 each PO DAILY 11/28/18 Sitagliptin Phosphate [Januvia] 100 mg PO DAILY 11/28/18 Family Disease History - Family Disease History Family Disease History: Other: Father (: 63: CT), Mother (: 86: Parkinson's), Brother (1, alive: newly diagnosed leukemia), Sister (1, healthy) , Son (1, healthy) Other Family History: No family history of colorectal cancer or otehr GI malignancy Review of Systems - Review of Systems Constitutional: reports: Loss of Appetite. denies: Unintentional Wgt. Loss Cardiovascular: denies: Chest Pain Respiratory: denies: SOB Gastrointestinal: reports: Abdominal Pain, Vomiting Physical Exam-GI Vital Signs: Vital Signs Temperature 98.3 F 11/29/18 10:00 Pulse Rate 78 11/29/18 10:00 Respiratory Rate 18 11/29/18 10:00 Blood Pressure 157/87 11/29/18 10:00 O2 Sat by Pulse Oximetry (%) 98 11/29/18 09:00 Constitutional: Yes: Calm Eyes: No: Sclera Icterus Cardiovascular: Yes: Regular Rate and Rhythm. No: Murmur Respiratory: Yes: CTA Bilaterally Gastrointestinal Inspection: Yes: Scars (+ pelvic scar) ...Auscultate: Yes: Normoactive Bowel Sounds ...Palpate: Yes: Soft, Tenderness (mild epigastric TTP). No: Guarding, Tenderness, Rebound ...Percussion: No: Tympanitic Edema: No (No LE edema) Neurological: Yes: Alert Labs: CBC, BMP 11/29/18 08:21 11/29/18 08:21 Hepatic Panel Total Bilirubin 2.5 mg/dL (0.2-1) H 11/29/18 08:21 AST 332 U/L (15-37) H 11/29/18 08:21 ALT 371 U/L (13-61) H 11/29/18 08:21 Alkaline Phosphatase 294 U/L (45-117) H 11/29/18 08:21 Albumin 3.4 g/dl (3.4-5.0) 11/29/18 08:21 Imaging - Results Cat Scan: Report Reviewed, Image Reviewed Ultrasound: Report Reviewed Problem List - Problems (1) Abdominal pain Assessment/Plan: Given acute upper / RUQ abdominal pain associated with new biliary ductal dilatation and the cholestatic abnormal liver chemistry pattern as well as MRCP findings, concern would be for passed or retained CBD stone (given that liver chemistries have risen from yesterday). I have discussed the possibility of ERCP with Ms. Sung for further evaluation. We discussed potential risks of the procedure like but not limited to bleeding, perforation requiring surgery to repair, infection, sedation medication effects and pancreatitis ( occurring in 5-10% of cases per the literature) all of which could be potentially life threatening. She has agreed to the procedure if it was felt to be medically necessary. Case discussed with Dr. Tom Ferris, biliary endoscopist who will be available to perform the procedure. For now: NPO IV Hydration Type and screen ordered stat Patient currently on zosyn Surgical evaluation. Should have cholecystectomy prior to discharge Code(s): R10.9 - UNSPECIFIED ABDOMINAL PAIN Qualifiers: Abdominal location: epigastric Qualified Code(s): R10.13 - Epigastric pain (2) Ulcerative colitis Assessment/Plan: Quiescent symptoms. Has not had colonoscopy in multiple years. Should have surveillance colonoscopy when acute issues are resolved. Code(s): K51.90 - ULCERATIVE COLITIS, UNSPECIFIED, WITHOUT COMPLICATIONS
--- NOTE | 2018-11-29 11:55 | EKG ---
Test Reason : Blood Pressure : / mmHG Vent. Rate : 061 BPM Atrial Rate : 061 BPM P-R Int : 200 ms QRS Dur : 110 ms QT Int : 452 ms P-R-T Axes : 041 -45 011 degrees QTc Int : 455 ms NORMAL SINUS RHYTHM LEFT AXIS DEVIATION INFERIOR INFARCT , AGE UNDETERMINED ANTEROSEPTAL INFARCT , AGE UNDETERMINED ABNORMAL ECG NO PREVIOUS ECGS AVAILABLE Confirmed by IVANA LAROSE MD ([id number]) on 11/29/2018 11:55:02 AM Referred By: DR BINGHAM Confirmed By:IVANA LAROSE MD
[2018-11-29] MEDS ORDERED: MIDAZOLAM HCL 2 MG/2 ML SINGLE DOSE VIAL ONE (13:03)
[2018-11-29] MEDS ORDERED: INDOMETHACIN 50 MG RECTAL SUPPOSITORY PR ONE ×3 (13:21→13:45)
--- NOTE | 2018-11-29 14:11 | PN ---
Progress Note (short form) - Note Progress Note: See endoscopy report. The major papilla was located within a deep duodenal diverticulum and could not be cannulated. Fortunately there appeared to be adequate bile flow so I think she may have passed whatever sludge was present. To follow LFTs, CBC.
--- NOTE | 2018-11-29 15:57 | CONSULT ---
Consult - History of Present Illness Chief Complaint: RUQ abdominal pain History of Present Illness: 83 yo female PMH HTN, Type II NIDDM, and ulcerative colitis who presented to ED today for evaluation of nausea, vomiting, and abdominal pain. About three weeks ago patient began experiencing malaise, nausea, and intermittent episodes of vomiting after eating. She went to see her PCP several times during this period. He did blood work which was reportedly unremarkable. Urinalysis showed a UTI and patient completed a 5-day course of macrobid. The symptoms persisted. Over the past several days the patient also developed abdominal pain focused in the RUQ. Today the RUQ pain began radiating to the back as well. She has had several episodes of diarrhea over the past 3 weeks as well. Patient was advised by PCP to come to the ED. Patient denies fever, sweats, chills. we were called to assess. 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 History of Recent Travel: No Home Medications - Allergies Allergies/Adverse Reactions: Allergies Allergy/AdvReac Type Severity Reaction Status Date / Time No Known Allergies Allergy Unverified 11/28/18 17:13 - Home Medications Home Medications: Ambulatory Orders Amlodipine Besylate 5 mg PO DAILY 11/28/18 Aspirin 81 mg PO DAILY 11/28/18 Atorvastatin Ca [Lipitor] 10 mg PO HS 11/28/18 Brimonidine Tartrate [Alphagan P 0.1% -] 1 drop OS DAILY 11/28/18 Calcium Carbonate [Calcium] 500 mg PO DAILY 11/28/18 Cholecalciferol (Vitamin D3) [Vitamin D3 -] 2,000 unit PO DAILY 11/28/18 Colesevelam HCl 3 tab PO BID 11/28/18 Glipizide [Glipizide Xl] 2.5 mg PO DAILY 11/28/18 Losartan Potassium [Cozaar] 100 mg PO DAILY 11/28/18 Metoprolol Tartrate [Lopressor -] 25 mg PO DAILY 11/28/18 Metoprolol Tartrate [Lopressor] 50 mg PO DAILY 11/28/18 Multivit-Min/Iron/Folic/Lutein [Centrum Silver Women Tablet] 1 tab PO DAILY [place]-3/Dha/Epa/Fish Oil [[place] 3 500 Softgel] 1 each PO DAILY 11/28/18 Sitagliptin Phosphate [Januvia] 100 mg PO DAILY 11/28/18 Family Disease History - Family Disease History Family Disease History: Other: Father (: 63: [place]), Mother (: 86: Parkinson's), Brother (1, alive: newly diagnosed leukemia), Sister (1, healthy) , Son (1, healthy) Other Family History: No family history of colorectal cancer or otehr GI malignancy Review of Systems - Review of Systems Constitutional: denies: Chills, Fever Eyes: denies: Blind Spots, Recent Change in Vision HENT: denies: Difficult Swallowing, Throat Pain Neck: denies: Pain on Movement, Tenderness Cardiovascular: denies: Chest Pain, Palpitations Respiratory: denies: Cough, SOB Gastrointestinal: reports: Abdominal Pain. denies: Bloating, Constipation, Diarrhea Genitourinary: denies: Discharge, Dysuria Breasts: reports: No Symptoms Reported. denies: Pain Musculoskeletal: denies: Back Pain, Muscle Pain, Muscle Cramps Integumentary: denies: Pallor, Rash Neurological: denies: Seizure, Syncope Endocrine: denies: Unexplained Weight Gain, Unexplained Weight Loss Hematology/Lymphatic: denies: Easily Bruised, Excessive Bleeding Psychiatric: denies: Anxiety, Depression Physical Exam Vital Signs: Vital Signs Temperature 98 F 11/29/18 14:05 Pulse Rate 54 L 11/29/18 15:06 Respiratory Rate 16 11/29/18 15:06 Blood Pressure 156/64 11/29/18 15:06 O2 Sat by Pulse Oximetry (%) 97 11/29/18 15:06 Constitutional: Yes: Well Nourished, No Distress, Calm Eyes: Yes: Conjunctiva Clear, EOM Intact HENT: Yes: Atraumatic, Normocephalic Neck: Yes: Supple, Trachea Midline Cardiovascular: Yes: Regular Rate and Rhythm, S1, S2 Respiratory: Yes: Regular, CTA Bilaterally Gastrointestinal: Yes: Normal Bowel Sounds, Soft, Tenderness, Epigastrium (- murphys sign). No: Distention, Tenderness, Rebound, Vomiting ...Rectal Exam: Yes: Deferred Renal/: No: CVA Tenderness - Left, CVA Tenderness - Right Breast(s): No: Mass, Skin Changes Extremities: No: Cool, Cyanosis Edema: No Peripheral Pulses WNL: Yes Integumentary: Yes: Jaundice (questionable) Neurological: Yes: Alert, Oriented Psychiatric: Yes: Alert, Oriented Labs: CBC, BMP 11/29/18 08:21 11/29/18 08:21 Imaging - Results Cat Scan: Report Reviewed, Image Reviewed Ultrasound: Report Reviewed, Image Reviewed MRI: Report Reviewed, Image Reviewed Problem List - Problems (1) Choledocholithiasis Assessment/Plan: 83 yo female with choledocholithiasis NPO and IVF hydration Medical/ Cardiology risk stratification agree with GI for ERCP Laparoscopic Cholecystectomy tenatively 12/03 Discussed with patient risks, benefits and alternatives of laparoscopic possible open choecystectomy, including but not limited to bleeding, infection, injury to adjacent structures, leak or injury, intraabdominal abscess, incisional hernia, need for further procedures, ; alternatives include antibiotics, delayed or no surgery - risks of this include failure of nonoperative therapy, perforation, sepsis, recurrence, . Patient desires to proceed with operation - will take to OR for above. Informed consent signed for same. 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
[2018-11-29] MEDS: METOPROLOL TARTRATE 25 MG TABLET (FP) PO SCH (21:52)
[2018-11-30] MEDS ORDERED: PIPERACILLIN/TAZOBACTAM 3.375 GM VIAL IVPB ONE ×4 (01:52→16:23)
[2018-11-30] MEDS ORDERED: DEXTROSE 5%-WATER - 50 ML IVPB ONE ×3 (01:52→16:23)
[2018-11-30] MEDS: PIPERACILLIN/TAZOB 3.375 GM 3.375 GM in DEXTROSE 5%-WATER - 50 ML IVPB SCH ×3 (01:53→17:20)
[2018-11-30] MEDS: INSULIN (NOVOLOG) ASPART 100 UNITS/ML 10ML VIAL SQ SCH ×2 (06:35→11:15)
--- NOTE | 2018-11-30 09:02 | PN ---
Progress Note, Physician Chief Complaint: Abdominal pain subsided History of Present Illness: 83 year-old female with a PMH significant for HTN, Type II NIDDM, and ulcerative colitis who presented to [facility] today for evaluation of nausea, vomiting, and abdominal pain. About three weeks ago patient began experiencing malaise, nausea, and intermittent episodes of vomiting after eating. She went to see her PCP several times during this period. He did blood work which was reportedly unremarkable. Urinalysis showed a UTI and patient completed a 5-day course of macrobid. The symptoms persisted. Over the past several days the patient also developed abdominal pain focused in the RUQ. Yesterday the RUQ pain began radiating to the back as well. She has had several episodes of diarrhea over the past 3 weeks as well. Patient was advised by PCP to come to the ED. Patient denies fever, sweats, chills. Patient was transfered overnight from [place] for further management - Current Medication List Current Medications: Active Medications Amlodipine Besylate (Norvasc -) 5 mg PO DAILY [facility] Last Admin: 11/29/18 09:48 Dose: 5 mg Brimonidine Tartrate (Alphagan P 0.1% -) 1 drop OS DAILY [facility] Last Admin: 11/29/18 09:51 Dose: 1 drop Sodium Chloride (Normal Saline -) 1,000 mls @ 100 mls/hr IV ASDIR [facility] Last Admin: 11/29/18 20:11 Dose: 100 mls/hr Piperacillin Sod/Tazobactam (Sod 3.375 gm/ Dextrose) 50 mls @ 100 mls/hr IVPB Q8H-IV [facility]; Protocol Last Admin: 11/30/18 01:53 Dose: 100 mls/hr Insulin Aspart (Novolog Vial) 1 units SQ ACHS [facility]; Protocol Last Admin: 11/30/18 06:35 Dose: 1 units Losartan Potassium (Cozaar -) 100 mg PO DAILY [facility] Last Admin: 11/29/18 09:48 Dose: 100 mg Metoprolol Tartrate (Lopressor -) 50 mg PO DAILY [facility] Last Admin: 11/29/18 09:48 Dose: 50 mg Metoprolol Tartrate (Lopressor -) 25 mg PO HS [facility] Last Admin: 11/29/18 21:52 Dose: 25 mg - Objective Vital Signs: Vital Signs Temperature 97.9 F 11/30/18 06:00 Pulse Rate 60 11/30/18 06:00 Respiratory Rate 20 11/30/18 06:00 Blood Pressure 152/64 11/30/18 06:00 O2 Sat by Pulse Oximetry (%) 94 L 11/29/18 21:00 Additional Findings/Remarks: Constitutional: Yes: Well Nourished, No Distress, Calm Eyes: Yes: WNL, Conjunctiva Clear, EOM Intact HENT: Yes: WNL, Atraumatic, Normocephalic Neck: Yes: WNL, Supple, Trachea Midline Cardiovascular: Yes: WNL, Regular Rate and Rhythm Respiratory: Yes: WNL, Regular, CTA Bilaterally Gastrointestinal: Yes: WNL, Normal Bowel Sounds, Soft ...Rectal Exam: Yes: Deferred Genitourinary: Yes: WNL Breast(s): Yes: WNL Musculoskeletal: Yes: WNL Extremities: Yes: WNL Edema: No Peripheral Pulses: Left Radial: 2+, Right Radial: 2+, Left Doralis Pedis: 2+, Right Dorsalis Pedis: 2+, Left Femoral: 2+, Right Femoral: 2+ Integumentary: Yes: WNL Neurological: Yes: WNL, Alert, Oriented ...Motor Strength: WNL Psychiatric: Yes: WNL, Alert, Oriented - ....Imaging Other: Other (ERCP:See endoscopy report. The major papilla was located within a deep duodenal diverticulum and could not be cannulated. Appeared to be adequate bile flow) Problem List - Problems (1) Preventive measure Assessment/Plan: FEN clear liquid diet monitor electrolytes DVT ambulatory Dispo maintain an inpatient full code discharge planning Code(s): Z29.9 - ENCOUNTER FOR PROPHYLACTIC MEASURES, UNSPECIFIED (2) Abdominal pain Assessment/Plan: MRCP/ERCP done, abd pain resolving possible lap liliya on tues Ofrimev prn for pain antiemetics prn Code(s): R10.9 - UNSPECIFIED ABDOMINAL PAIN Qualifiers: Abdominal location: epigastric Qualified Code(s): R10.13 - Epigastric pain (3) Cholecystitis Assessment/Plan: c/w IV zosyn appreciate GI consultation Gen surgery Dr John following Code(s): K81.9 - CHOLECYSTITIS, UNSPECIFIED (4) Choledocholithiasis Assessment/Plan: Appreciate GI consultation given resolution of pain and downtrending LFTs, possible passing of stone appreciate Gen Sx consultation possible lap liliya on tues clear liquids with cautious advance Code(s): K80.50 - CALCULUS OF BILE DUCT W/O CHOLANGITIS OR CHOLECYST W/O OBST (5) Ulcerative colitis Assessment/Plan: c/w colesevelelam on discharge Code(s): K51.90 - ULCERATIVE COLITIS, UNSPECIFIED, WITHOUT COMPLICATIONS (6) HTN (hypertension) Code(s): I10 - ESSENTIAL (PRIMARY) HYPERTENSION (7) Diabetes mellitus, insulin dependent (IDDM), controlled Code(s): E11.9 - TYPE 2 DIABETES MELLITUS WITHOUT COMPLICATIONS; 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 - New Patient This patient is new to me today: No - Critical Care Critical Care patient: No - Discharge Referral Referred to [facility] Med P.C.: No
[2018-11-30 09:18] LABS: BASO % 0.2 % (0-2.0); HEMATOCRIT 31.5 % (32.4-45.2); HEMOGLOBIN 10.5 GM/dL (10.7-15.3); LYMPH % 10.9 % (8-40); MCH 28.2 pg (25.7-33.7); MCHC 33.3 g/dl (32.0-36.0); MEAN CELL VOLUME 84.5 fl (80-96); MEAN PLT VOLUME 7.6 fl (7.5-11.1); MONO % 2.4 % (3.8-10.2); NEUT % 86.5 % (42.8-82.8); PLATELET COUNT 250 K/MM3 (134-434); RBC 3.73 M/mm3 (3.60-5.2); RDW 14.5 % (11.6-15.6); WHITE BLOOD COUNT 8.7 K/mm3 (4.0-10.0)
[2018-11-30 10:08] LABS: BILIRUBIN,DIRECT 0.4 mg/dL (0.0-0.2); BILIRUBIN,TOTAL 1.1 mg/dL (0.2-1); BLOOD UREA NITROGEN 15.5 mg/dL (7-18); CALCIUM 8.8 mg/dL (8.5-10.1); CREATININE 0.6 mg/dL (0.55-1.3); MAGNESIUM 1.9 mg/dL (1.8-2.4); POTASSIUM 3.7 mmol/L (3.5-5.1); TOT PROT 6.3 g/dl (6.4-8.2)
[2018-11-30] MEDS: LOSARTAN POTASSIUM 50 MG TABLET (FP) PO SCH (11:00)
[2018-11-30] MEDS: BRIMONIDINE TARTRATE 0.1% OPHTHALMIC 5 ML BOTTLE OS SCH (11:00)
[2018-11-30] MEDS: METOPROLOL TARTRATE 50 MG TABLET (FP) PO SCH (11:00)
[2018-11-30] MEDS: amLODIPine BESYLATE 5 MG TABLET (FP) PO SCH (11:00)
--- NOTE | 2018-11-30 11:43 | PN ---
Progress Note (short form) - Note Progress Note: Pt no longer in pain. Liver chemistries are improved: Hepatic Panel Total Bilirubin 1.1 mg/dL (0.2-1) H 11/30/18 08:15 Direct Bilirubin 0.4 mg/dL (0.0-0.2) H 11/30/18 08:15 AST 108 U/L (15-37) H 11/30/18 08:15 ALT 241 U/L (13-61) H 11/30/18 08:15 Alkaline Phosphatase 222 U/L (45-117) H 11/30/18 08:15 Albumin 3.0 g/dl (3.4-5.0) L 11/30/18 08:15 Pt now starting clear liquid diet. If tolerated would advance diet cautiously.
[2018-11-30] MEDS: SODIUM CHLORIDE 1,000 ML IV SCH (17:22)
--- NOTE | 2018-11-30 17:23 | PN ---
Progress Note (short form) - Note Progress Note: Anesthesia post op note POD#1. S/PERCP under GA, pat seen and examined. VSS. No apparent post anesthesia complications.
[2018-11-30] MEDS: METOPROLOL TARTRATE 25 MG TABLET (FP) PO SCH (21:29)
[2018-11-30] MEDS: INSULIN SLIDING SCALE (NOVOLOG) 1 VIAL SQ SCH (22:25)
[2018-12-01] MEDS ORDERED: DEXTROSE 5%-WATER - 50 ML IVPB ONE ×3 (00:42→16:45)
[2018-12-01] MEDS ORDERED: PIPERACILLIN/TAZOBACTAM 3.375 GM VIAL IVPB ONE ×3 (00:42→16:45)
[2018-12-01] MEDS: PIPERACILLIN/TAZOB 3.375 GM 3.375 GM in DEXTROSE 5%-WATER - 50 ML IVPB SCH ×3 (01:20→17:20)
[2018-12-01] MEDS ORDERED: traMADol HCL 50 MG TABLET PO ONE (03:37)
[2018-12-01] MEDS: SODIUM CHLORIDE 1,000 ML IV SCH (05:35)
[2018-12-01] MEDS: INSULIN SLIDING SCALE (NOVOLOG) 1 VIAL SQ SCH ×4 (06:27→21:12)
--- NOTE | 2018-12-01 08:01 | PN ---
Progress Note, Physician Chief Complaint: RUQ returned overnight. Made NPO again. Chantale lovell planned for Tue History of Present Illness: 83 year-old female with a PMH significant for HTN, Type II NIDDM, and ulcerative colitis who presented to [facility] today for evaluation of nausea, vomiting, and abdominal pain. About three weeks ago patient began experiencing malaise, nausea, and intermittent episodes of vomiting after eating. She went to see her PCP several times during this period. He did blood work which was reportedly unremarkable. Urinalysis showed a UTI and patient completed a 5-day course of macrobid. The symptoms persisted. Over the past several days the patient also developed abdominal pain focused in the RUQ. Yesterday the RUQ pain began radiating to the back as well. She has had several episodes of diarrhea over the past 3 weeks as well. Patient was advised by PCP to come to the ED. Patient denies fever, sweats, chills. Patient was transferred from [place] for further management - Current Medication List Current Medications: Active Medications Amlodipine Besylate (Norvasc -) 5 mg PO DAILY [facility] Last Admin: 11/30/18 11:00 Dose: 5 mg Brimonidine Tartrate (Alphagan P 0.1% -) 1 drop OS DAILY [facility] Last Admin: 11/30/18 11:00 Dose: 1 drop Sodium Chloride (Normal Saline -) 1,000 mls @ 100 mls/hr IV ASDIR [facility] Last Admin: 12/01/18 05:35 Dose: 100 mls/hr Piperacillin Sod/Tazobactam (Sod 3.375 gm/ Dextrose) 50 mls @ 100 mls/hr IVPB Q8H-IV [facility]; Protocol Last Admin: 12/01/18 01:20 Dose: 100 mls/hr Insulin Aspart (Novolog Vial Sliding Scale -) 1 vial SQ ACHS [facility]; Protocol Last Admin: 12/01/18 06:27 Dose: Not Given Losartan Potassium (Cozaar -) 100 mg PO DAILY [facility] Last Admin: 11/30/18 11:00 Dose: 100 mg Metoprolol Tartrate (Lopressor -) 50 mg PO DAILY [facility] Last Admin: 11/30/18 11:00 Dose: 50 mg Metoprolol Tartrate (Lopressor -) 25 mg PO HS [facility] Last Admin: 11/30/18 21:29 Dose: 25 mg - Objective Vital Signs: Vital Signs Temperature 98.0 F 12/01/18 06:09 Pulse Rate 54 L 12/01/18 06:09 Respiratory Rate 20 12/01/18 06:09 Blood Pressure 140/63 12/01/18 06:09 O2 Sat by Pulse Oximetry (%) 96 11/30/18 20:15 Additional Findings/Remarks: Constitutional: Yes: Well Nourished, No Distress, Calm Eyes: Yes: WNL, Conjunctiva Clear, EOM Intact HENT: Yes: WNL, Atraumatic, Normocephalic Neck: Yes: WNL, Supple, Trachea Midline Cardiovascular: Yes: WNL, Regular Rate and Rhythm Respiratory: Yes: WNL, Regular, CTA Bilaterally Gastrointestinal: Yes: WNL, Normal Bowel Sounds, Soft. Tender to RUQ, no rebound ...Rectal Exam: Yes: Deferred Genitourinary: Yes: WNL Breast(s): Yes: WNL Musculoskeletal: Yes: WNL Extremities: Yes: WNL Edema: No Peripheral Pulses: Left Radial: 2+, Right Radial: 2+, Left Doralis Pedis: 2+, Right Dorsalis Pedis: 2+, Left Femoral: 2+, Right Femoral: 2+ Integumentary: Yes: WNL Neurological: Yes: WNL, Alert, Oriented ...Motor Strength: WNL Psychiatric: Yes: WNL, Alert, Oriented Labs: CBC, BMP 11/30/18 08:15 11/30/18 08:15 Problem List - Problems (1) Preventive measure Assessment/Plan: FEN NPO IVF @100cc/hr monitor electrolytes DVT ambulatory Dispo maintain an inpatient full code discharge planning Code(s): Z29.9 - ENCOUNTER FOR PROPHYLACTIC MEASURES, UNSPECIFIED (2) Abdominal pain Assessment/Plan: MRCP/ERCP done, abd pain return after having clear liquids lap liliya on Ofrimev prn for pain antiemetics prn Code(s): R10.9 - UNSPECIFIED ABDOMINAL PAIN Qualifiers: Abdominal location: epigastric Qualified Code(s): R10.13 - Epigastric pain (3) Cholecystitis Assessment/Plan: c/w IV zosyn appreciate GI consultation Gen surgery Dr John following Code(s): K81.9 - CHOLECYSTITIS, UNSPECIFIED (4) Choledocholithiasis Assessment/Plan: Appreciate GI consultation appreciate Gen Sx consultation lap liliya on tues Biliary colic-made NPO again Code(s): K80.50 - CALCULUS OF BILE DUCT W/O CHOLANGITIS OR CHOLECYST W/O OBST (5) Ulcerative colitis Assessment/Plan: c/w colesevelelam on discharge Code(s): K51.90 - ULCERATIVE COLITIS, UNSPECIFIED, WITHOUT COMPLICATIONS (6) HTN (hypertension) Assessment/Plan: normotenisve at this time NPO will dose with IV if needed Code(s): I10 - ESSENTIAL (PRIMARY) HYPERTENSION (7) Diabetes mellitus, insulin dependent (IDDM), controlled Assessment/Plan: BGM monitor with novolog sliding scale Code(s): E11.9 - TYPE 2 DIABETES MELLITUS WITHOUT COMPLICATIONS; 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 - New Patient This patient is new to me today: No - Critical Care Critical Care patient: No - Discharge Referral Referred to [facility] Med P.C.: No
[2018-12-01] MEDS ORDERED: ACETAMINOPHEN 1000 MG/100 ML VIAL (NON FORMULARY) IVPB PRN (08:25)
[2018-12-01 08:58] LABS: BLOOD UREA NITROGEN 9.6 mg/dL (7-18); CALCIUM 8.6 mg/dL (8.5-10.1); CREATININE 0.7 mg/dL (0.55-1.3); MAGNESIUM 1.9 mg/dL (1.8-2.4); POTASSIUM 3.6 mmol/L (3.5-5.1)
[2018-12-01 09:11] LABS: BASO % 0.4 % (0-2.0); EOS % 0.7 % (0-4.5); HEMATOCRIT 31.3 % (32.4-45.2); HEMOGLOBIN 10.3 GM/dL (10.7-15.3); LYMPH % 25.8 % (8-40); MEAN CELL VOLUME 84.8 fl (80-96); MEAN PLT VOLUME 7.6 fl (7.5-11.1); MONO % 4.8 % (3.8-10.2); NEUT % 68.3 % (42.8-82.8); PLATELET COUNT 269 K/MM3 (134-434); RDW 14.4 % (11.6-15.6); WHITE BLOOD COUNT 9.1 K/mm3 (4.0-10.0)
[2018-12-01] MEDS: METOPROLOL TARTRATE 50 MG TABLET (FP) PO SCH (09:23)
[2018-12-01] MEDS: amLODIPine BESYLATE 5 MG TABLET (FP) PO SCH (09:24)
[2018-12-01] MEDS: LOSARTAN POTASSIUM 50 MG TABLET (FP) PO SCH (09:24)
[2018-12-01] MEDS: BRIMONIDINE TARTRATE 0.1% OPHTHALMIC 5 ML BOTTLE OS SCH (09:25)
[2018-12-01] MEDS ORDERED: MAG HYDROX/AL HYDROX/SIMETH 30 ML UNIT-DOSE CUP PO PRN (09:47)
--- NOTE | 2018-12-01 10:29 | PN ---
Progress Note (short form) - Note Progress Note: Pt developed abd pain yesterday after trying to eat. Her labs continue to improve: Hepatic Panel Total Bilirubin 1.0 mg/dL (0.2-1) 12/01/18 08:00 Direct Bilirubin 0.4 mg/dL (0.0-0.2) H 11/30/18 08:15 AST 45 U/L (15-37) H 12/01/18 08:00 ALT 164 U/L (13-61) H 12/01/18 08:00 Alkaline Phosphatase 161 U/L (45-117) H 12/01/18 08:00 Albumin 3.0 g/dl (3.4-5.0) L 12/01/18 08:00 CBC WBC 9.1 K/mm3 (4.0-10.0) 12/01/18 08:00 RBC 3.70 M/mm3 (3.60-5.2) 12/01/18 08:00 Hgb 10.3 GM/dL (10.7-15.3) L 12/01/18 08:00 Hct 31.3 % (32.4-45.2) L 12/01/18 08:00 MCV 84.8 fl (80-96) 12/01/18 08:00 MCH 28.0 pg (25.7-33.7) 12/01/18 08:00 MCHC 33.0 g/dl (32.0-36.0) 12/01/18 08:00 RDW 14.4 % (11.6-15.6) 12/01/18 08:00 Plt Count 269 K/MM3 (134-434) 12/01/18 08:00 MPV 7.6 fl (7.5-11.1) 12/01/18 08:00 Absolute Neuts (auto) 6.2 K/mm3 (1.5-8.0) 12/01/18 08:00 Neutrophils % 68.3 % (42.8-82.8) D 12/01/18 08:00 Lymphocytes % 25.8 % (8-40) D 12/01/18 08:00 Monocytes % 4.8 % (3.8-10.2) D 12/01/18 08:00 Eosinophils % 0.7 % (0-4.5) D 12/01/18 08:00 Basophils % 0.4 % (0-2.0) 12/01/18 08:00 Nucleated RBC % 0 % (0-0) 12/01/18 08:00 Abd slightly distended, soft. Impression: Recurrent biliary colic. For surgery 12/03.
--- NOTE | 2018-12-01 12:28 | PN ---
Progress Note, Physician History of Present Illness: OOB IN CHAIR C/O BILATERAL UPPER QUADRANT ABDO PAIN NO N/V NO BM NO C/O F/C - Current Medication List Current Medications: Active Medications Acetaminophen (Ofirmev Injection -) 1,000 mg IVPB Q6H PRN PRN Reason: PAIN OR FEVER Last Admin: 12/01/18 08:42 Dose: 1,000 mg Al Hydroxide/Mg Hydroxide (Mylanta Oral Suspension -) 30 ml PO Q6H PRN PRN Reason: DYSPEPSIA Amlodipine Besylate (Norvasc -) 5 mg PO DAILY [facility] Last Admin: 12/01/18 09:24 Dose: 5 mg Brimonidine Tartrate (Alphagan P 0.1% -) 1 drop OS DAILY [facility] Last Admin: 12/01/18 09:25 Dose: 1 drop Sodium Chloride (Normal Saline -) 1,000 mls @ 100 mls/hr IV ASDIR [facility] Last Admin: 12/01/18 05:35 Dose: 100 mls/hr Piperacillin Sod/Tazobactam (Sod 3.375 gm/ Dextrose) 50 mls @ 100 mls/hr IVPB Q8H-IV [facility]; Protocol Last Admin: 12/01/18 09:24 Dose: 100 mls/hr Insulin Aspart (Novolog Vial Sliding Scale -) 1 vial SQ ACHS [facility]; Protocol Last Admin: 12/01/18 11:10 Dose: Not Given Losartan Potassium (Cozaar -) 100 mg PO DAILY [facility] Last Admin: 12/01/18 09:24 Dose: 100 mg Metoprolol Tartrate (Lopressor -) 50 mg PO DAILY [facility] Last Admin: 12/01/18 09:23 Dose: 50 mg Metoprolol Tartrate (Lopressor -) 25 mg PO HS [facility] Last Admin: 11/30/18 21:29 Dose: 25 mg - Objective Vital Signs: Vital Signs Temperature 98.5 F 12/01/18 10:00 Pulse Rate 60 12/01/18 10:00 Respiratory Rate 18 12/01/18 10:00 Blood Pressure 157/71 12/01/18 10:00 O2 Sat by Pulse Oximetry (%) 96 12/01/18 09:00 Constitutional: Yes: No Distress Eyes: Yes: Conjunctiva Clear Cardiovascular: Yes: Regular Rate and Rhythm, S1, S2 Respiratory: Yes: CTA Bilaterally Gastrointestinal: Yes: Normal Bowel Sounds, Soft, Tenderness, Other (+ BILATERAL UPPER QUAD ABDO TENDERNESS) Edema: No Labs: CBC, BMP 12/01/18 08:00 12/01/18 08:00 Assessment/Plan ? CHOLEDOCHOLITHIASIS ELEVATED LFTS- IMPROVED CONTINUE EMPIRIC COVERAGE BILIARY TRACT PATHOGENS WITH ZOSYN
[2018-12-01] MEDS: METOPROLOL TARTRATE 25 MG TABLET (FP) PO SCH (21:12)
[2018-12-02] MEDS ORDERED: PIPERACILLIN/TAZOBACTAM 3.375 GM VIAL IVPB ONE ×3 (00:53→17:04)
[2018-12-02] MEDS ORDERED: DEXTROSE 5%-WATER - 50 ML IVPB ONE ×3 (00:54→17:05)
[2018-12-02] MEDS: PIPERACILLIN/TAZOB 3.375 GM 3.375 GM in DEXTROSE 5%-WATER - 50 ML IVPB SCH ×3 (01:19→18:19)
[2018-12-02] MEDS: SODIUM CHLORIDE 1,000 ML IV SCH ×3 (01:21→15:01)
[2018-12-02] MEDS: INSULIN SLIDING SCALE (NOVOLOG) 1 VIAL SQ SCH ×4 (06:16→21:13)
[2018-12-02 07:32] LABS: ALBUMIN 2.9 g/dl (3.4-5.0); BILIRUBIN,TOTAL 1.2 mg/dL (0.2-1); BLOOD UREA NITROGEN 6.5 mg/dL (7-18); CALCIUM 8.4 mg/dL (8.5-10.1); CREATININE 0.7 mg/dL (0.55-1.3); MAGNESIUM 1.8 mg/dL (1.8-2.4); POTASSIUM 3.3 mmol/L (3.5-5.1)
[2018-12-02 07:36] LABS: BASO % 0.9 % (0-2.0); EOS % 1.7 % (0-4.5); HEMATOCRIT 31.9 % (32.4-45.2); HEMOGLOBIN 10.6 GM/dL (10.7-15.3); LYMPH % 24.5 % (8-40); MCH 28.1 pg (25.7-33.7); MCHC 33.3 g/dl (32.0-36.0); MEAN CELL VOLUME 84.5 fl (80-96); MEAN PLT VOLUME 7.3 fl (7.5-11.1); MONO % 5.6 % (3.8-10.2); NEUT % 67.3 % (42.8-82.8); PLATELET COUNT 241 K/MM3 (134-434); RBC 3.78 M/mm3 (3.60-5.2); RDW 14.6 % (11.6-15.6); WHITE BLOOD COUNT 7.6 K/mm3 (4.0-10.0)
[2018-12-02] MEDS ORDERED: MAGNESIUM 1GM/D5W - 1 GM/100 ML IVPB IVPB ONE (08:56)
[2018-12-02] MEDS ORDERED: POTASSIUM CHLORIDE ORAL LIQUID 20 MEQ/15 ML PO ONE (09:00)
[2018-12-02] MEDS ORDERED: MAGNESIUM SULF 50% (8.12 MEQ/2 ML-1 GM VIAL) IVPB ONE (09:15)
[2018-12-02] MEDS: amLODIPine BESYLATE 5 MG TABLET (FP) PO SCH (10:07)
[2018-12-02] MEDS: LOSARTAN POTASSIUM 50 MG TABLET (FP) PO SCH (10:07)
[2018-12-02] MEDS: METOPROLOL TARTRATE 50 MG TABLET (FP) PO SCH (10:07)
[2018-12-02] MEDS: BRIMONIDINE TARTRATE 0.1% OPHTHALMIC 5 ML BOTTLE OS SCH (10:08)
--- NOTE | 2018-12-02 10:56 | PN ---
Progress Note, Physician Chief Complaint: abdominal pain History of Present Illness: 83 yo female PMH HTN, Type II NIDDM, and ulcerative colitis who presented to [facility] today for evaluation of nausea, vomiting, and abdominal pain. About three weeks ago patient began experiencing malaise, nausea, and intermittent episodes of vomiting after eating. She went to see her PCP several times during this period. She is clinically improved. - Current Medication List Current Medications: Active Medications Acetaminophen (Ofirmev Injection -) 1,000 mg IVPB Q6H PRN PRN Reason: PAIN OR FEVER Last Admin: 12/01/18 08:42 Dose: 1,000 mg Al Hydroxide/Mg Hydroxide (Mylanta Oral Suspension -) 30 ml PO Q6H PRN PRN Reason: DYSPEPSIA Amlodipine Besylate (Norvasc -) 5 mg PO DAILY [facility] Last Admin: 12/02/18 10:07 Dose: 5 mg Brimonidine Tartrate (Alphagan P 0.1% -) 1 drop OS DAILY [facility] Last Admin: 12/02/18 10:08 Dose: 1 drop Sodium Chloride (Normal Saline -) 1,000 mls @ 100 mls/hr IV ASDIR [facility] Last Admin: 12/02/18 01:21 Dose: 100 mls/hr Piperacillin Sod/Tazobactam (Sod 3.375 gm/ Dextrose) 50 mls @ 100 mls/hr IVPB Q8H-IV [facility]; Protocol Last Admin: 12/02/18 10:06 Dose: 100 mls/hr Insulin Aspart (Novolog Vial Sliding Scale -) 1 vial SQ ACHS [facility]; Protocol Last Admin: 12/02/18 06:16 Dose: Not Given Losartan Potassium (Cozaar -) 100 mg PO DAILY [facility] Last Admin: 12/02/18 10:07 Dose: 100 mg Metoprolol Tartrate (Lopressor -) 50 mg PO DAILY [facility] Last Admin: 12/02/18 10:07 Dose: 50 mg Metoprolol Tartrate (Lopressor -) 25 mg PO HS [facility] Last Admin: 12/01/18 21:12 Dose: 25 mg - Objective Vital Signs: Vital Signs Temperature 98.2 F 12/02/18 05:54 Pulse Rate 60 12/02/18 05:54 Respiratory Rate 20 12/02/18 05:54 Blood Pressure 120/90 12/02/18 05:54 O2 Sat by Pulse Oximetry (%) 98 12/01/18 21:00 Vital Signs Period Temp Pulse Resp BP Sys/Gutierrez Pulse Ox Last 24 Hr 97.9 F-98.5 F 56-60 18-20 120-180/65-90 98 Constitutional: Yes: Well Nourished, No Distress, Calm Eyes: Yes: Conjunctiva Clear, EOM Intact HENT: Yes: Atraumatic, Normocephalic Neck: Yes: Supple, Trachea Midline Cardiovascular: Yes: Regular Rate and Rhythm, S1, S2 Respiratory: Yes: Regular, CTA Bilaterally Gastrointestinal: Yes: Normal Bowel Sounds, Soft, Tenderness, Tenderness, Epigastrium. No: Tenderness, Rebound ...Rectal Exam: Yes: Deferred Genitourinary: No: CVA Tenderness - Left, CVA Tenderness - Right Musculoskeletal: No: Muscle Pain, Muscle Weakness Extremities: No: Cool, Cyanosis Edema: No Peripheral Pulses WNL: Yes Peripheral Pulses: Left Radial: 2+, Right Radial: 2+, Left Doralis Pedis: 2+, Right Dorsalis Pedis: 2+, Left Femoral: 2+, Right Femoral: 2+ Integumentary: No: Jaundice, Rash Neurological: Yes: Alert, Oriented Psychiatric: Yes: Alert, Oriented Labs: CBC, BMP 12/02/18 06:45 12/02/18 06:45 Problem List - Problems (1) Choledocholithiasis Assessment/Plan: 83 yo female with choledocholithiasis, ERCP results were reviewed. NPO and IVF hydration Medical/ Cardiology risk stratification Laparoscopic Cholecystectomy tenatively 12/03 Discussed with patient risks, benefits and alternatives of laparoscopic possible open choecystectomy, including but not limited to bleeding, infection, injury to adjacent structures, leak or injury, intraabdominal abscess, incisional hernia, need for further procedures, ; alternatives include antibiotics, delayed or no surgery - risks of this include failure of nonoperative therapy, perforation, sepsis, recurrence, . Patient desires to proceed with operation - will take to OR for above. Informed consent signed for same. 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
[2018-12-02] MEDS ORDERED: INSULIN (NOVOLOG) ASPART 100 UNITS/ML 10ML VIAL ONE (12:02)
--- NOTE | 2018-12-02 16:17 | PN ---
Progress Note, Physician Chief Complaint: pt remains NPO while awaiting lap liliya on 12/03. - Current Medication List Current Medications: Active Medications Acetaminophen (Ofirmev Injection -) 1,000 mg IVPB Q6H PRN PRN Reason: PAIN OR FEVER Last Admin: 12/01/18 08:42 Dose: 1,000 mg Al Hydroxide/Mg Hydroxide (Mylanta Oral Suspension -) 30 ml PO Q6H PRN PRN Reason: DYSPEPSIA Amlodipine Besylate (Norvasc -) 5 mg PO DAILY [facility] Last Admin: 12/02/18 10:07 Dose: 5 mg Brimonidine Tartrate (Alphagan P 0.1% -) 1 drop OS DAILY [facility] Last Admin: 12/02/18 10:08 Dose: 1 drop Sodium Chloride (Normal Saline -) 1,000 mls @ 100 mls/hr IV ASDIR [facility] Last Admin: 12/02/18 15:01 Dose: 100 mls/hr Piperacillin Sod/Tazobactam (Sod 3.375 gm/ Dextrose) 50 mls @ 100 mls/hr IVPB Q8H-IV [facility]; Protocol Last Admin: 12/02/18 10:06 Dose: 100 mls/hr Insulin Aspart (Novolog Vial Sliding Scale -) 1 vial SQ ACHS [facility]; Protocol Last Admin: 12/02/18 12:05 Dose: 2 units Losartan Potassium (Cozaar -) [address] [facility] Last Admin: 12/02/18 10:07 Dose: 100 mg Metoprolol Tartrate (Lopressor -) [address] [facility] Last Admin: 12/02/18 10:07 Dose: 50 mg Metoprolol Tartrate (Lopressor -) [address] [facility] Last Admin: 12/01/18 21:12 Dose: 25 mg - Objective Vital Signs: Vital Signs Temperature 98.6 F 12/02/18 14:02 Pulse Rate 48 L 12/02/18 14:02 Respiratory Rate 18 12/02/18 14:02 Blood Pressure 134/63 12/02/18 14:02 O2 Sat by Pulse Oximetry (%) 99 12/02/18 09:00 Constitutional: Yes: Well Nourished, No Distress, Calm Eyes: Yes: Conjunctiva Clear, PERRL HENT: Yes: Atraumatic, Normocephalic Neck: Yes: Supple, Trachea Midline Cardiovascular: Yes: Regular Rate and Rhythm Respiratory: Yes: Regular, CTA Bilaterally Gastrointestinal: Yes: Soft, Hyperactive Bowel Sounds, Tenderness (mild b/l upper abdominal tenderness) ...Rectal Exam: Yes: Deferred Musculoskeletal: Yes: WNL Extremities: Yes: WNL Edema: No Peripheral Pulses WNL: Yes Peripheral Pulses: Left Radial: 2+, Right Radial: 2+, Left Doralis Pedis: 2+, Right Dorsalis Pedis: 2+ Integumentary: Yes: WNL Neurological: Yes: Alert, Oriented ...Motor Strength: WNL Psychiatric: Yes: Alert, Oriented Labs: CBC, BMP 12/02/18 06:45 12/02/18 06:45 Impression/Plan Impression/Plan: (1) Preventive measure Assessment/Plan: FEN NPO IVF @100cc/hr Maalox PRN dyspepsia Code(s): Z29.9 - ENCOUNTER FOR PROPHYLACTIC MEASURES, UNSPECIFIED (2) Abdominal pain lap lliiya on 12/03 Ofrimev prn for pain antiemetics prn Code(s): R10.9 - UNSPECIFIED ABDOMINAL PAIN Qualifiers: Abdominal location: epigastric Qualified Code(s): R10.13 - Epigastric pain (3) Cholecystitis Assessment/Plan: cont zosyn TID appreciate GI recs Gen surgery Dr John following Code(s): K81.9 - CHOLECYSTITIS, UNSPECIFIED (4) Choledocholithiasis Assessment/Plan: Appreciate GI and Gen Sx input Code(s): K80.50 - CALCULUS OF BILE DUCT W/O CHOLANGITIS OR CHOLECYST W/O OBST (5) Ulcerative colitis Assessment/Plan: c/w colesevelelam on discharge Code(s): K51.90 - ULCERATIVE COLITIS, UNSPECIFIED, WITHOUT COMPLICATIONS (6) HTN (hypertension) Assessment/Plan: lopressor 50mg daily norvasc 5mg daily losartan 100mh daily Code(s): I10 - ESSENTIAL (PRIMARY) HYPERTENSION (7) Diabetes mellitus, insulin dependent (IDDM), controlled Assessment/Plan: BGM Q6hrs w/ novolog sliding scale DVT PPX: ambulate as tolerated Dispo requires inpt care full code discharge planning Visit type - Emergency Visit Emergency Visit: Yes ED Registration Date: 11/28/18 Care time: The patient presented to the Emergency Department on the above date and was hospitalized for further evaluation of their emergent condition. - New Patient This patient is new to me today: Yes Date on this admission: 12/02/18 - Critical Care Critical Care patient: No - Discharge Referral Referred to [facility] No
[2018-12-02] MEDS: METOPROLOL TARTRATE 25 MG TABLET (FP) PO SCH (21:12)
[2018-12-03] MEDS ORDERED: ceFAZolin SODIUM 1 GM VIAL IVPB ONE
[2018-12-03] MEDS: SODIUM CHLORIDE 1,000 ML IV SCH ×3 (00:30→15:00)
[2018-12-03] MEDS ORDERED: DEXTROSE 5%-WATER - 50 ML IVPB ONE ×3 (01:52→17:10)
[2018-12-03] MEDS ORDERED: PIPERACILLIN/TAZOBACTAM 3.375 GM VIAL IVPB ONE ×3 (01:52→17:10)
[2018-12-03] MEDS: PIPERACILLIN/TAZOB 3.375 GM 3.375 GM in DEXTROSE 5%-WATER - 50 ML IVPB SCH ×3 (02:01→17:16)
[2018-12-03] MEDS: INSULIN SLIDING SCALE (NOVOLOG) 1 VIAL SQ SCH ×3 (06:18→21:40)
[2018-12-03 07:52] LABS: HEMATOCRIT 33.6 % (32.4-45.2); HEMOGLOBIN 11.2 GM/dL (10.7-15.3); MCHC 33.4 g/dl (32.0-36.0); MEAN PLT VOLUME 7.2 fl (7.5-11.1); PLATELET COUNT 250 K/MM3 (134-434); RBC 4.01 M/mm3 (3.60-5.2); RDW 14.5 % (11.6-15.6); WHITE BLOOD COUNT 7.6 K/mm3 (4.0-10.0)
[2018-12-03 07:57] LABS: INR 1.19 (0.83-1.09); PROTHROMBIN TIME (PATIENT) 14.1 SEC (9.7-13.0)
[2018-12-03 07:58] LABS: BILIRUBIN,TOTAL 1.4 mg/dL (0.2-1); BLOOD UREA NITROGEN 6.4 mg/dL (7-18); CALCIUM 8.5 mg/dL (8.5-10.1); CREATININE 0.5 mg/dL (0.55-1.3); MAGNESIUM 1.9 mg/dL (1.8-2.4); POTASSIUM 3.6 mmol/L (3.5-5.1); TOT PROT 6.1 g/dl (6.4-8.2)
[2018-12-03 07:59] LABS: ACTIVATED PTT 34.3 SECONDS (25.2-36.5)
[2018-12-03] MEDS ORDERED: BENZOIN TINCTURE SWABSTICK TP ONE (08:17)
[2018-12-03] MEDS ORDERED: BUPIVACAINE HCL/PF 0.5% (5 MG/ML) 30 ML VIAL IJ ONE ×3 (08:17→11:35)
[2018-12-03] MEDS: LOSARTAN POTASSIUM 50 MG TABLET (FP) PO SCH (09:00)
[2018-12-03] MEDS: METOPROLOL TARTRATE 50 MG TABLET (FP) PO SCH (09:00)
[2018-12-03] MEDS: amLODIPine BESYLATE 5 MG TABLET (FP) PO SCH (09:01)
--- NOTE | 2018-12-03 09:27 | PN ---
Progress Note, Physician Chief Complaint: offers no complaints, anxious about surgery today History of Present Illness: Patient is a 83 yo female with a past medical history of hypertension, Type II NIDDM, and ulcerative colitis. Patient developed abdominal pain focused in the RUQ and was evaluated by surgery. She is scheduled for a lap cholecystectomy today. - Current Medication List Current Medications: Active Medications Acetaminophen (Ofirmev Injection -) 1,000 mg IVPB Q6H PRN PRN Reason: PAIN OR FEVER Last Admin: 12/01/18 08:42 Dose: 1,000 mg Al Hydroxide/Mg Hydroxide (Mylanta Oral Suspension -) 30 ml PO Q6H PRN PRN Reason: DYSPEPSIA Amlodipine Besylate (Norvasc -) 5 mg PO DAILY [facility] Last Admin: 12/03/18 09:01 Dose: 5 mg Brimonidine Tartrate (Alphagan P 0.1% -) 1 drop OS DAILY [facility] Last Admin: 12/02/18 10:08 Dose: 1 drop Sodium Chloride (Normal Saline -) 1,000 mls @ 100 mls/hr IV ASDIR [facility] Last Admin: 12/03/18 00:30 Dose: 100 mls/hr Piperacillin Sod/Tazobactam (Sod 3.375 gm/ Dextrose) 50 mls @ 100 mls/hr IVPB Q8H-IV [facility]; Protocol Last Admin: 12/03/18 09:02 Dose: 100 mls/hr Insulin Aspart (Novolog Vial Sliding Scale -) 1 vial SQ ACHS [facility]; Protocol Last Admin: 12/03/18 06:18 Dose: Not Given Losartan Potassium (Cozaar -) 100 mg PO DAILY [facility] Last Admin: 12/03/18 09:00 Dose: 100 mg Metoprolol Tartrate (Lopressor -) 50 mg PO DAILY [facility] Last Admin: 12/03/18 09:00 Dose: 50 mg Metoprolol Tartrate (Lopressor -) 25 mg PO HS [facility] Last Admin: 12/02/18 21:12 Dose: 25 mg - Objective Vital Signs: Vital Signs Temperature 98.3 F 12/03/18 05:00 Pulse Rate 60 12/03/18 05:00 Respiratory Rate 20 12/02/18 18:00 Blood Pressure 154/70 12/03/18 05:00 O2 Sat by Pulse Oximetry (%) 94 L 12/02/18 21:00 Constitutional: Yes: Well Nourished, No Distress Eyes: Yes: WNL HENT: Yes: Atraumatic Neck: Yes: Supple Cardiovascular: Yes: Regular Rate and Rhythm Respiratory: Yes: Regular, CTA Bilaterally Gastrointestinal: Yes: Normal Bowel Sounds, Soft ...Rectal Exam: Yes: Deferred Genitourinary: Yes: WNL Musculoskeletal: Yes: WNL Edema: No Integumentary: Yes: WNL Neurological: Yes: Alert, Oriented Labs: CBC, BMP 12/03/18 06:54 12/03/18 06:54 INR, PTT INR 1.19 (0.83-1.09) H 12/03/18 06:54 Problem List - Problems (1) Abdominal pain Assessment/Plan: for lap liliya today with Dr. John Code(s): R10.9 - UNSPECIFIED ABDOMINAL PAIN Qualifiers: Abdominal location: epigastric Qualified Code(s): R10.13 - Epigastric pain (2) Cholecystitis Assessment/Plan: cont zosyn TID appreciate GI recs Gen surgery Dr John following Code(s): K81.9 - CHOLECYSTITIS, UNSPECIFIED (3) Choledocholithiasis Assessment/Plan: Appreciate GI and Gen Sx input Code(s): K80.50 - CALCULUS OF BILE DUCT W/O CHOLANGITIS OR CHOLECYST W/O OBST (4) Diabetes mellitus, insulin dependent (IDDM), controlled Assessment/Plan: BGM Q6hrs w/ novolog sliding scale Code(s): E11.9 - TYPE 2 DIABETES MELLITUS WITHOUT COMPLICATIONS; 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 Code(s): I10 - ESSENTIAL (PRIMARY) HYPERTENSION (6) Ulcerative colitis Assessment/Plan: c/w colesevelelam on discharge Code(s): K51.90 - ULCERATIVE COLITIS, UNSPECIFIED, WITHOUT COMPLICATIONS (7) Preventive measure Code(s): Z29.9 - ENCOUNTER FOR PROPHYLACTIC MEASURES, UNSPECIFIED Visit type - Emergency Visit Emergency Visit: Yes ED Registration Date: 11/28/18 Care time: The patient presented to the Emergency Department on the above date and was hospitalized for further evaluation of their emergent condition. - New Patient This patient is new to me today: Yes Date on this admission: 12/03/18 - Critical Care Critical Care patient: No - Discharge Referral Referred to [facility] No
[2018-12-03] MEDS: BRIMONIDINE TARTRATE 0.1% OPHTHALMIC 5 ML BOTTLE OS SCH (09:30)
[2018-12-03] MEDS ORDERED: LABETALOL HCL 5 MG/1 ML (100MG/20 ML VIAL) ONE (11:08)
[2018-12-03] MEDS ORDERED: NEOSTIGMINE METHYLSULFATE 0.5 MG/ML - 10 ML MDV ONE (11:23)
[2018-12-03] MEDS ORDERED: ROCURONIUM BROMIDE 50 MG/5 ML SYRINGE ONE (11:32)
[2018-12-03] MEDS ORDERED: PROPOFOL 20 ML ONE ×3 (11:32→11:33)
[2018-12-03] MEDS ORDERED: DESFLURANE GAS 240 ML BOTTLE IH ONE (11:33)
[2018-12-03] MEDS ORDERED: MIDAZOLAM HCL 2 MG/2 ML SINGLE DOSE VIAL ONE ×2 (11:34→12:11)
[2018-12-03] MEDS ORDERED: fentaNYL CITRATE 250 MCG/5 ML VIAL ONE (11:35)
--- NOTE | 2018-12-03 11:52 | OP ---
Operative Note - Note: Operative Date: 12/03/18 Pre-Operative Diagnosis: choledocholithiasis Operation: laparoscopic cholecystectomy Findings: massively distended gallbladder, 60ml asperated before dissection, critical view identified. Post-Operative Diagnosis: Same as Pre-op Surgeon: Nigel John Early Learning Teacher: Tommy Bryant Anesthesiologist/HORSE BUYER: Yanet Mccormick Anesthesia: General, Local Specimens Removed: gallbladder Estimated Blood Loss (mls): 10 Fluid Volume Replaced (mls): 700 (crystalloid ) Operative Report Dictated: Yes
[2018-12-03] MEDS ORDERED: MAG HYDROX/AL HYDROX/SIMETH 30 ML UNIT-DOSE CUP PO PRN (12:58)
[2018-12-03] MEDS ORDERED: ACETAMINOPHEN INJECTION 100 ML IVPB ONE (13:48)
[2018-12-03] MEDS: ACETAMINOPHEN 1000 MG/100 ML VIAL (NON FORMULARY) IVPB PRN (13:50)
[2018-12-03] MEDS ORDERED: INSULIN (NOVOLOG) ASPART 100 UNITS/ML 10ML VIAL ONE ×2 (16:56→21:11)
--- NOTE | 2018-12-03 18:39 | PN.GI ---
GI Progress Note Subjective: No acute events S/P Lap Liliya today - Objective Vital Signs: Vital Signs Temperature 97.5 F L 12/03/18 15:33 Pulse Rate 61 12/03/18 15:33 Respiratory Rate 16 12/03/18 15:33 Blood Pressure 145/61 12/03/18 15:33 O2 Sat by Pulse Oximetry (%) 99 12/03/18 15:33 Constitutional: Calm Eyes: No: Sclera Icterus Cardiovascular: Yes: Regular Rate and Rhythm Respiratory: Yes: CTA Bilaterally Gastrointestinal Inspection: Yes: Other (glued trochar sites). No: Distention ...Auscultate: Yes: Normoactive Bowel Sounds ...Palpate: Yes: Soft. No: Tenderness ...Percussion: No: Tympanitic Edema: No (No LE edema) Neurological: Yes: Alert Labs: CBC, BMP 12/03/18 06:54 12/03/18 06:54 INR, PTT INR 1.19 (0.83-1.09) H 12/03/18 06:54 Problem List - Problems (1) Abdominal pain Assessment/Plan: Resolved Suspected passed CBD stone. CBD unable to be cannulated. S/P Lap liliya Monitor LFTs Post op care per surgery Code(s): R10.9 - UNSPECIFIED ABDOMINAL PAIN Qualifiers: Abdominal location: epigastric Qualified Code(s): R10.13 - Epigastric pain
[2018-12-03] MEDS: METOPROLOL TARTRATE 25 MG TABLET (FP) PO SCH (21:40)
[2018-12-04] MEDS ORDERED: PIPERACILLIN/TAZOBACTAM 3.375 GM VIAL IVPB ONE ×3 (01:21→17:57)
[2018-12-04] MEDS ORDERED: DEXTROSE 5%-WATER - 50 ML IVPB ONE ×3 (01:22→17:57)
[2018-12-04] MEDS: ACETAMINOPHEN 1000 MG/100 ML VIAL (NON FORMULARY) IVPB PRN (01:25)
[2018-12-04] MEDS: PIPERACILLIN/TAZOB 3.375 GM 3.375 GM in DEXTROSE 5%-WATER - 50 ML IVPB SCH ×3 (01:26→18:01)
[2018-12-04] MEDS: INSULIN SLIDING SCALE (NOVOLOG) 1 VIAL SQ SCH ×4 (06:30→21:04)
[2018-12-04 09:22] LABS: BASO % 0.3 % (0-2.0); EOS % 0.2 % (0-4.5); HEMATOCRIT 31.3 % (32.4-45.2); HEMOGLOBIN 10.3 GM/dL (10.7-15.3); LYMPH % 12.1 % (8-40); MCH 27.8 pg (25.7-33.7); MCHC 33.1 g/dl (32.0-36.0); MEAN CELL VOLUME 84.2 fl (80-96); MEAN PLT VOLUME 7.1 fl (7.5-11.1); MONO % 5.2 % (3.8-10.2); NEUT % 82.2 % (42.8-82.8); PLATELET COUNT 302 K/MM3 (134-434); RBC 3.71 M/mm3 (3.60-5.2); RDW 15.2 % (11.6-15.6); WHITE BLOOD COUNT 13.4 K/mm3 (4.0-10.0)
[2018-12-04] MEDS: amLODIPine BESYLATE 5 MG TABLET (FP) PO SCH (09:31)
[2018-12-04] MEDS: METOPROLOL TARTRATE 50 MG TABLET (FP) PO SCH (09:31)
[2018-12-04] MEDS: LOSARTAN POTASSIUM 50 MG TABLET (FP) PO SCH (09:31)
[2018-12-04] MEDS: BRIMONIDINE TARTRATE 0.1% OPHTHALMIC 5 ML BOTTLE OS SCH (09:33)
[2018-12-04 09:46] LABS: ALBUMIN 2.9 g/dl (3.4-5.0); BILIRUBIN,TOTAL 0.9 mg/dL (0.2-1); BLOOD UREA NITROGEN 9.4 mg/dL (7-18); CALCIUM 8.7 mg/dL (8.5-10.1); CREATININE 0.7 mg/dL (0.55-1.3); MAGNESIUM 1.8 mg/dL (1.8-2.4); POTASSIUM 3.3 mmol/L (3.5-5.1); TOT PROT 5.9 g/dl (6.4-8.2)
[2018-12-04] MEDS ORDERED: KCL 10 MEQ IVPB 10 MEQ/100 ML INFUS.BAG IVPB SCH (10:00)
[2018-12-04] MEDS ORDERED: INSULIN (NOVOLOG) ASPART 100 UNITS/ML 10ML VIAL ONE ×3 (11:09→20:29)
--- NOTE | 2018-12-04 11:13 | PN ---
Progress Note (short form) - Note Progress Note: s/p lap choly yesterday Vital Signs Period Temp Pulse Resp BP Sys/Gutierrez Pulse Ox Last 24 Hr 97.5 F-98.7 F 53-72 12-21 102-154/42-73 92-100 cor-rrr lungs clear abd soft,nt +lap choly trochar scars ext no edema CBC, BMP 12/04/18 09:05 12/04/18 09:05 Microbiology 11/29/18 01:00 Blood - Peripheral Venous Blood Culture - Final NO GROWTH AFTER 5 DAYS INCUBATION 11/29/18 01:00 Blood - Peripheral Venous Blood Culture - Final NO GROWTH AFTER 5 DAYS INCUBATION 11/28/18 18:10 Urine - Urine Clean Catch Urine Culture - Final Klebsiella Pneumoniae a/p leukocytosis s/p lap choly choledocholithiasis continue zosyn, repeat cbc in am, repeat cmp in am surgical f/u in am f Problem List - Problems (1) Choledocholithiasis Code(s): K80.50 - CALCULUS OF BILE DUCT W/O CHOLANGITIS OR CHOLECYST W/O OBST (2) Cholecystitis Code(s): K81.9 - CHOLECYSTITIS, UNSPECIFIED
--- NOTE | 2018-12-04 11:44 | PN ---
Progress Note, Physician Chief Complaint: feels well post op, eating, had a BM yesterday prior to surgery, none today. abdomen soft, non distended History of Present Illness: Patient is a 83 yo female with a past medical history of hypertension, Type II NIDDM, and ulcerative colitis. Patient developed abdominal pain focused in the RUQ and was evaluated by surgery. She is s/p lap cholecystectomy. POD #1. leukocytosis @ 13.6 today. discussed with ID, continue IV antibiotics and d/c in a.m if improved. - Current Medication List Current Medications: Active Medications Acetaminophen (Ofirmev Injection -) 1,000 mg IVPB Q6H PRN PRN Reason: PAIN OR FEVER Last Admin: 12/04/18 01:25 Dose: 1,000 mg Al Hydroxide/Mg Hydroxide (Mylanta Oral Suspension -) 30 ml PO Q6H PRN PRN Reason: DYSPEPSIA Amlodipine Besylate (Norvasc -) 5 mg PO DAILY [facility] Last Admin: 12/04/18 09:31 Dose: 5 mg Brimonidine Tartrate (Alphagan P 0.1% -) 1 drop OS DAILY [facility] Last Admin: 12/04/18 09:33 Dose: 1 drop Sodium Chloride (Normal Saline -) 1,000 mls @ 100 mls/hr IV [facility]IR [facility] Last Admin: 12/03/18 15:00 Dose: Not Given Piperacillin Sod/Tazobactam (Sod 3.375 gm/ Dextrose) 50 mls @ 100 mls/hr IVPB Q8H-IV [facility]; Protocol Last Admin: 12/04/18 09:34 Dose: 100 mls/hr Insulin Aspart (Novolog Vial Sliding Scale -) 1 vial SQ ACHS [facility]; Protocol Last Admin: 12/04/18 11:10 Dose: 2 units Losartan Potassium (Cozaar -) 100 mg PO DAILY [facility] Last Admin: 12/04/18 09:31 Dose: 100 mg Metoprolol Tartrate (Lopressor -) 50 mg PO DAILY [facility] Last Admin: 12/04/18 09:31 Dose: 50 mg Metoprolol Tartrate (Lopressor -) 25 mg PO HS [facility] Last Admin: 12/03/18 21:40 Dose: 25 mg - Objective Vital Signs: Vital Signs Temperature 97.9 F 12/04/18 09:00 Pulse Rate 66 09/04/19 09:00 Respiratory Rate 18 12/04/18 09:00 Blood Pressure 147/64 12/04/18 09:00 O2 Sat by Pulse Oximetry (%) 95 12/04/18 10:00 Labs: CBC, BMP 12/04/18 09:05 12/04/18 09:05 INR, PTT INR 1.19 (0.83-1.09) H 12/03/18 06:54 Problem List - Problems (1) Abdominal pain Assessment/Plan: POD #1. feeling well, no abdominal pain or tenderness. cleared by surgery for discharge home. d/c home in a.m. if wbc downtrends. continue iv antibiotics. Code(s): R10.9 - UNSPECIFIED ABDOMINAL PAIN Qualifiers: Abdominal location: epigastric Qualified Code(s): R10.13 - Epigastric pain (2) Cholecystitis Assessment/Plan: cont zosyn TID appreciate GI recs Gen surgery Dr John following Code(s): K81.9 - CHOLECYSTITIS, UNSPECIFIED (3) Choledocholithiasis Assessment/Plan: Appreciate GI and Gen Sx input Code(s): K80.50 - CALCULUS OF BILE DUCT W/O CHOLANGITIS OR CHOLECYST W/O OBST (4) Diabetes mellitus, insulin dependent (IDDM), controlled Assessment/Plan: BGM Q6hrs w/ novolog sliding scale Code(s): E11.9 - TYPE 2 DIABETES MELLITUS WITHOUT COMPLICATIONS; 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 Code(s): I10 - ESSENTIAL (PRIMARY) HYPERTENSION (6) Ulcerative colitis Assessment/Plan: c/w colesevelelam on discharge Code(s): K51.90 - ULCERATIVE COLITIS, UNSPECIFIED, WITHOUT COMPLICATIONS (7) Preventive measure Code(s): Z29.9 - ENCOUNTER FOR PROPHYLACTIC MEASURES, UNSPECIFIED Visit type - Emergency Visit Emergency Visit: Yes ED Registration Date: 11/28/18 Care time: The patient presented to the Emergency Department on the above date and was hospitalized for further evaluation of their emergent condition. - New Patient This patient is new to me today: No - Critical Care Critical Care patient: No - Discharge Referral Referred to [facility] No
[2018-12-04] MEDS: SODIUM CHLORIDE 1,000 ML IV SCH (16:13)
--- NOTE | 2018-12-04 19:21 | PN.GI ---
GI Progress Note Subjective: s/p lap liliya, mild ruq pain, tolerating diet, lfts down [place] trend, possibly passed stone vs sludge - Objective Vital Signs: Vital Signs Temperature 98.0 F 12/04/18 13:46 Pulse Rate 66 12/04/18 13:46 Respiratory Rate 18 12/04/18 13:46 Blood Pressure 151/61 12/04/18 13:46 O2 Sat by Pulse Oximetry (%) 95 12/04/18 10:00 Constitutional: Well Nourished Eyes: Yes: Conjunctiva Clear, Occular Prosthesis Cardiovascular: Yes: Regular Rate and Rhythm Respiratory: Yes: CTA Bilaterally Gastrointestinal Inspection: No: Ascites ...Palpate: Yes: Soft, Tenderness (ruq). No: Firm/Rigid, Guarding, Hepatomegaly , Mass, Pulsatile Mass, Splenomegaly Labs: CBC, BMP 12/04/18 09:05 12/04/18 09:05 INR, PTT INR 1.19 (0.83-1.09) H 12/03/18 06:54 Problem List - Problems (1) Dilated cbd, acquired Assessment/Plan: with sludge LFTs downward trend R> Actigall 300mg bid continue to trend lfts as an outpatient possibly passed a stone will need EUS as clinically indicated made aware to follow up as an outpatient Code(s): K83.8 - OTHER SPECIFIED DISEASES OF BILIARY TRACT
[2018-12-04] MEDS: METOPROLOL TARTRATE 25 MG TABLET (FP) PO SCH (21:04)
[2018-12-05] MEDS ORDERED: PIPERACILLIN/TAZOBACTAM 3.375 GM VIAL IVPB ONE ×2 (00:36→09:53)
[2018-12-05] MEDS ORDERED: DEXTROSE 5%-WATER - 50 ML IVPB ONE ×2 (00:36→09:54)
[2018-12-05] MEDS: PIPERACILLIN/TAZOB 3.375 GM 3.375 GM in DEXTROSE 5%-WATER - 50 ML IVPB SCH ×2 (01:50→09:54)
[2018-12-05] MEDS ORDERED: PT OWN MED DRAWER 7, Y5N ONE (05:32)
[2018-12-05] MEDS: SODIUM CHLORIDE 1,000 ML IV SCH (05:39)
[2018-12-05] MEDS: INSULIN SLIDING SCALE (NOVOLOG) 1 VIAL SQ SCH (05:59)
[2018-12-05] MEDS: amLODIPine BESYLATE 5 MG TABLET (FP) PO SCH (09:55)
[2018-12-05] MEDS: METOPROLOL TARTRATE 50 MG TABLET (FP) PO SCH (09:55)
[2018-12-05] MEDS: LOSARTAN POTASSIUM 50 MG TABLET (FP) PO SCH (09:55)
[2018-12-05] MEDS: BRIMONIDINE TARTRATE 0.1% OPHTHALMIC 5 ML BOTTLE OS SCH (10:02)
[2018-12-05 10:15] LABS: BASO % 0.4 % (0-2.0); EOS % 2.5 % (0-4.5); HEMATOCRIT 31.2 % (32.4-45.2); HEMOGLOBIN 10.4 GM/dL (10.7-15.3); LYMPH % 13.1 % (8-40); MCHC 33.4 g/dl (32.0-36.0); MEAN PLT VOLUME 7.3 fl (7.5-11.1); MONO % 4.8 % (3.8-10.2); NEUT % 79.2 % (42.8-82.8); PLATELET COUNT 251 K/MM3 (134-434); RBC 3.72 M/mm3 (3.60-5.2); RDW 14.8 % (11.6-15.6); WHITE BLOOD COUNT 9.7 K/mm3 (4.0-10.0)
[2018-12-05 10:42] LABS: BILIRUBIN,TOTAL 1.1 mg/dL (0.2-1); BLOOD UREA NITROGEN 7.1 mg/dL (7-18); CALCIUM 8.6 mg/dL (8.5-10.1); CREATININE 0.6 mg/dL (0.55-1.3); MAGNESIUM 1.6 mg/dL (1.8-2.4); POTASSIUM 3.6 mmol/L (3.5-5.1)
--- NOTE | 2018-12-05 11:14 | DS ---
Physical Exam: SUBJECTIVE: Patient seen and examined OBJECTIVE: Vital Signs Period Temp Pulse Resp BP Sys/Gutierrez Pulse Ox Last 24 Hr 97.8 F-99.2 F 65-90 18-20 116-156/58-80 96 PHYSICAL EXAM GENERAL: The patient is awake, alert, and fully oriented, in no acute distress. HEAD: Normal with no signs of trauma. EYES: PERRL, extraocular movements intact, sclera anicteric, conjunctiva clear. ENT: Ears normal, nares patent, oropharynx clear without exudates, moist mucous membranes. NECK: Trachea midline, full range of motion, supple. LUNGS: Breath sounds equal, clear to auscultation bilaterally, no wheezes, no crackles, no accessory muscle use. HEART: Regular rate and rhythm, S1, S2 without murmur, rub or gallop. ABDOMEN: Soft, nontender, nondistended, normoactive bowel sounds, no guarding, no rebound, no hepatosplenomegaly, no masses. EXTREMITIES: 2+ pulses, warm, well-perfused, no edema. NEUROLOGICAL: Cranial nerves II through XII grossly intact. Normal speech, gait not observed. PSYCH: Normal mood, normal affect. SKIN: Warm, dry, normal turgor, no rashes or lesions noted. LABS Laboratory Results - last 24 hr 12/04/18 12/04/18 12/05/18 15:57 21:02 09:40 WBC 9.7 RBC 3.72 Hgb 10.4 L Hct 31.2 L MCV 84.0 MCH 28.0 MCHC 33.4 RDW 14.8 Plt Count 251 MPV 7.3 L Absolute Neuts (auto) 7.7 Neutrophils % 79.2 Lymphocytes % 13.1 Monocytes % 4.8 Eosinophils % 2.5 D Basophils % 0.4 Nucleated RBC % 0 Sodium Potassium Chloride Carbon Dioxide Anion Gap BUN Creatinine Est GFR (CKD-EPI)AfAm Est GFR (CKD-EPI)NonAf POC Glucometer 212 199 Random Glucose Calcium Magnesium Total Bilirubin AST ALT Alkaline Phosphatase Total Protein Albumin 12/05/18 09:40 WBC RBC Hgb Hct MCV MCH MCHC RDW Plt Count MPV Absolute Neuts (auto) Neutrophils % Lymphocytes % Monocytes % Eosinophils % Basophils % Nucleated RBC % Sodium 145 Potassium 3.6 Chloride 113 H Carbon Dioxide 28 Anion Gap 5 L BUN 7.1 Creatinine 0.6 Est GFR (CKD-EPI)AfAm 98.38 Est GFR (CKD-EPI)NonAf 84.88 POC Glucometer Random Glucose 158 H Calcium 8.6 Magnesium 1.6 L Total Bilirubin 1.1 H AST 27 ALT 70 H Alkaline Phosphatase 89 Total Protein 6.0 L Albumin 3.0 L HOSPITAL COURSE: Date of Admission:11/28/18 Date of Discharge: 12/05/18 Discharge Summary Reason For Visit: ABD PAIN/CHOLELITHIASIS Current Active Problems Abdominal pain (Acute) Cholecystitis (Acute) Choledocholithiasis (Acute) Diabetes mellitus, insulin dependent (IDDM), controlled (Acute) Dilated cbd, acquired (Acute) HTN (hypertension) (Acute) Preventive measure (Acute) Ulcerative colitis (Acute) Condition: Stable - Instructions Diet, Activity, Other Instructions: Postoperative instructions: You had a laparoscopic cholecystectomy on 12/03/[address] Nigel John of [facility]. Activity: Resume your usual activities gradually, but no heavy exertion or lifting more than 10-15 pounds for 1 month. Remove dressings 48 hours after surgery; sticky tapes underneath will fall off by themselves. You may shower daily starting then, just pat the incision areas dry. No bath or swimming until skin incisions have healed. Eat lightly at first, but advance to your usual diet as tolerated. Pain: For pain, you may use and alternate Tylenol (acetaminophen) 1-2 pills and/ or ibuprofen 200 mg (1-3 pills) every 6 hours each as needed; this means that you can take one OR the other at 3-hour intervals. If you are prescribed a Tylenol/narcotic combination for severe pain, use it instead of plain Tylenol as needed and switch back when your pain starts decreasing. Do not take more than 4000mg of acetaminophen in a day. Take medications as prescribed or indicated on the labeling. Follow-up: Call Dr. John' office at [phone] to make your postop appointment (Sunday in approximately 2 weeks after surgery). Clinic is held in the [facility] on the first floor of [facility]. Call the office if you have: * increasing pain not responsive to pain medication * fever of 101F or higher * vomiting * unusual or increasing bleeding or drainage from wounds * increasing redness or swelling at wound sites * inability to urinate Also, see your primary medical doctor within 1-2 weeks. Resume the aspirin when cleared by your primary care doctor and surgeon (Dr. John) Disposition: HOME - Home Medications Comprehensive Discharge Medication List: Ambulatory Orders Amlodipine Besylate 5 mg PO DAILY 11/28/18 Atorvastatin Ca [Lipitor] 10 mg PO HS 11/28/18 Brimonidine Tartrate [Alphagan P 0.1% -] 1 drop OS DAILY 11/28/18 Calcium Carbonate [Calcium] 500 mg PO DAILY 11/28/18 Cholecalciferol (Vitamin D3) [Vitamin D -] 2,000 unit PO DAILY 11/28/18 Colesevelam HCl 3 tab PO BID 11/28/18 Glipizide [Glipizide Xl] 2.5 mg PO DAILY 11/28/18 Losartan Potassium [Cozaar] 100 mg PO DAILY 11/28/18 Metoprolol Tartrate [Lopressor -] 25 mg PO DAILY 11/28/18 Metoprolol Tartrate [Lopressor] 50 mg PO DAILY 11/28/18 Multivit-Min/Iron/Folic/Lutein [Centrum Silver Women Tablet] 1 tab PO DAILY [place]-3/Dha/Epa/Fish Oil [[place] 3 500 Softgel] 1 each PO DAILY 11/28/18 Sitagliptin Phosphate [Januvia] 100 mg PO DAILY 11/28/18 Problem List - Problems (1) Abdominal pain Code(s): R10.9 - UNSPECIFIED ABDOMINAL PAIN Qualifiers: Abdominal location: epigastric Qualified Code(s): R10.13 - Epigastric pain (2) Cholecystitis Code(s): K81.9 - CHOLECYSTITIS, UNSPECIFIED (3) Choledocholithiasis Code(s): K80.50 - CALCULUS OF BILE DUCT W/O CHOLANGITIS OR CHOLECYST W/O OBST (4) Diabetes mellitus, insulin dependent (IDDM), controlled Code(s): E11.9 - TYPE 2 DIABETES MELLITUS WITHOUT COMPLICATIONS; Z79.4 - DETENTION (CURRENT) USE OF INSULIN (5) HTN (hypertension) Code(s): I10 - ESSENTIAL (PRIMARY) HYPERTENSION (6) Ulcerative colitis Code(s): K51.90 - ULCERATIVE COLITIS, UNSPECIFIED, WITHOUT COMPLICATIONS (7) Preventive measure Code(s): Z29.9 - ENCOUNTER FOR PROPHYLACTIC MEASURES, UNSPECIFIED - Discharge Referral Referred to [facility] No
[2018-12-05 11:34] VITALS: BP 161/74; PULSE 75; TEMP 98
[2018-12-05] MEDS ORDERED: URSODIOL 300 MG CAPSULE PO SCH (13:15)
--- NOTE | 2018-12-05 17:31 | PATH ---
Surgical Pathology Report Patient Name: GIANA NAVARRO [facility]. Rec. #: [id number] /Age/Gender: 1935 (Age: 83) / F Account: [id number] Location: [address] [place] [address]/[facility] Taken: 12/03/2018 Received: 12/03/2018 Reported: 12/05/2018 Physicians: Nigel John M.D. Specimen(s) Received GALLBLADDER Clinical History Abdominal pain, cholelithiasis Final Diagnosis GALLBLADDER, CHOLECYSTECTOMY: ACUTE AND CHRONIC CHOLECYSTITIS. CHOLELITHIASIS. ONE REACTIVE LYMPHO NODE. Electronically Signed Filipe Mckeon M.D. Gross Description Received in formalin, labeled "gallbladder," is a 9.0 x 4.0 x 4.0 cm. gallbladder with a 0.2 cm. in length portion of cystic duct attached. The outer surface varies from smooth to shaggy. The lumen contains with bile and multiple stones, the largest measures 0.4 cm in greatest dimension. The mucosa is focally superficial eroded. The wall of the gallbladder measures 0.2cm. in thickness. Cabana Attendant sections are submitted in one cassette. KWS/12/04/2018 tamara/12/04/2018
--- NOTE | 2018-12-09 11:58 | OP ---
DATE OF OPERATION: 12/03/2018 PREOPERATIVE DIAGNOSIS: Choledocholithiasis. POSTOPERATIVE DIAGNOSIS: Choledocholithiasis. PROCEDURE: Laparoscopic cholecystectomy. ATTENDING SURGEON: Nigel John MD BOTTOM SANDER: Tommy Bryant MD ANESTHESIA: MARIA E Galindo. ANESTHESIA TYPE: General with local. Local consisted of 0.5% Marcaine, a total of 10 mL given at the port sites. ESTIMATED BLOOD LOSS: 10 mL. INTRAVENOUS FLUID ADMINISTERED: 700 mL crystalloid. SPECIMEN: Gallbladder. BRIEF FINDINGS: Patient has had a massively distended gallbladder, 60 mL of green bile was aspirated before dissected. Critical view was identified. Instrument counts were correct. INDICATIONS: Patient is an 83-year-old female presenting with right lower quadrant pain consistent with choledocholithiasis after gallstone pancreatitis. She was counseled regarding risks, benefits, alternatives, surgical cholecystectomy. Signed informed consent. Was taken for the procedure. DESCRIPTION OF PROCEDURE: Patient was brought to the operating room. Placed in supine position on the operating room table. The lower extremities had SCDs placed to compression. She was induced with general anesthesia, endotracheally intubated at which point we began 1st with a formal time-out identifying the operative site and procedure. The anterior abdominal wall was prepped and draped into a standard surgical field. We began 1st with a supraumbilical approach to Collin entry to the abdomen. It was incised with a 15-blade scalpel, deepened and widened through subcutaneous tissue. We took care to dissect down to the midline fascia of the rectus, which was opened under direct visualization into the abdomen, 0 Vicryl stitch was then laid in a cross in a figure of eight to ablate the space postoperatively. A 12-mm Collin trocar port entry was installed into the abdomen, and pneumoperitoneum was established to 15 mmHg. With this in place and the patient stable, we began 1st with exploration of the right upper quadrant. The gallbladder was identified and retracted towards the left shoulder with a grasper. Additional port entry sites were made at the subxiphoid position for instruments as well as 2 in the right abdomen. Under direct visualization, the 5-mm trocars were installed, and we began 1st with dissection of the gallbladder. Developing a plane at the cystic structures posterior to the cystic duct, the plane was developed. Subsequently, the cystic artery was identified and then isolated. With the critical view in place, we used 5-mm metallic aluminum clips to control these structures and then they were divided with Endo Nae. The gallbladder was then elevated from the hepatic bed using Bovie cautery under direct visualization from the cystic structures towards the dome. With this completely done and hemostasis obtained on the liver's bed, the gallbladder was retrieved from the umbilical port using 10-mm EndoCatch bag from the umbilical port while resiting the camera to the 5-mm subxiphoid position. After complete, the pneumoperitoneum was re-established, and hemostasis was observed in the liver's bed. Additional effluent, which was bloody, was suctioned from the abdomen, and the patient was then leveled, and the ports were removed under direct visualization. Instrument counts were correct. The umbilical port was used to ablate the final Collin entry into the abdomen. The patient was awoken from general anesthesia after closure of the skin using 4-0 Vicryl at each port site and giving local anesthetic with 4-0 Vicryl. The patient then had sterile dressings placed. He was awoken from general anesthesia having tolerated procedure well, stable throughout. MD JENNIFER Espinoza/[id number]
--- NOTE | 2018-12-09 14:39 | PDOC ---
Documentation entered by Dwayne Sinha SCRIBE, acting as scribe for Dallas Krause MD. Dallas Krause MD: This documentation has been prepared by the frankeBharath Aiswarya, SCRIBE, under my direction and personally reviewed by me in its entirety. I confirm that the documentation accurately reflects all work, treatment, procedures, and medical decision making performed by me. Attending Attestation - Resident Resident Name: EktamagnoliaTalib - ED Attending Attestation I have performed the following: I have examined & evaluated the patient, The case was reviewed & discussed with the resident, I agree w/resident's findings & plan, Exceptions are as noted - HPI HPI: 11/28/18 18:32 The patient is an 83 year old female, with a significant PMH of HTN, diabetes and ulcerative colitis, who presents to the emergency department with abdominal pain that began a few days ago. Patient states pain is located to the RUQ that radiates to the back with associated symptoms of intermittent nausea and non bilious/non bloody vomiting. Patient states she went to her PCP yesterday where she was diagnosed with UTI and was prescribed antibiotics, mild relief. She still notes abdominal pain progressively worsened today. Patients last bowel movement was this morning. The patient denies fever, chills,diarrhea and constipation.Denies dysuria, frequency, urgent and hematuria. Allergies: NKDA Past surgical history: None reported Social history: None reported PCP: Taj Wilhelm - Physicial Exam PE: 11/28/18 18:32 ROS: A complete review of 10 out of 10 review of systems is taken and is negative apart from what is previously mentioned below and in the HPI. Exam Vitals: Triage Vital signs reviewed General Appearance: no acute distress, well nourished well developed, Chest Wall: Nontender Cardiac: Regular rate and rhythm, no murmurs, no rubs, no gallops, Lungs: Clear to auscultation bilateral, good air movement bilaterally, Abdomen:+Upper abdominal discomfort. Nondistended, normal bowel sounds. Rectal: Exam deferred Extremities: Full range of motion to all extremities, no cyanosis, clubbing, or edema Skin: Warm and dry, no rashes or lesions, no petechiae Psych: normal mood, normal affect - Medical Decision Making 11/28/18 19:02 Diffuse intermittent abdominal discomfort recently started on antibiotics for UTI now with epigastric discomfort urinalysis demonstrates blood laboratory analysis demonstrates elevated LFTs and elevated bili. A CT with IV contrast and ultrasound have been ordered Dr. Neal to follow-up results and dispo
== END 2018-12-05 13:21 | disposition home or self-care (01) | DRG 418 ==
LOC: FER 17:11 → J6S 21:49
PROVIDERS: ADMIT Internal Medicine; ATTEND Nurse Practitioner Family
PROC: 0FT44ZZ Resection of Gallbladder, Percutaneous Endoscopic Approach (ICD-10-PCS; principal; 2018-12-03 10:00)
DX: K80.12 Calculus of gallbladder with acute and chronic cholecystitis without obstruction (principal); K51.90 Ulcerative colitis, unspecified, without complications; N13.30 Unspecified hydronephrosis; I10 Essential (primary) hypertension; E11.9 Type 2 diabetes mellitus without complications; E80.6 Other disorders of bilirubin metabolism; K57.10 Diverticulosis of small intestine without perforation or abscess without bleeding; Z79.4 Long term (current) use of insulin; Z90.710 Acquired absence of both cervix and uterus
CPT/HCPCS: 36415; 71046-TC-FY; 74177-TC; 74181-TC; 76705-TC; 80053; 80076; 81003; 81015; 82272; 82962; 83690; 83735; 84100; 84484; 85025; 85027; 85610; 85730; 86850; 86900; 86901; 87040; 87086; 87186; 88304-TC; 93005; 94002; 94760; 99284-25; J0131; J7030

== ENCOUNTER 2020-04-24 18:27 | Inpatient (IN) | payer OTHER ==
[2020-04-24 18:46] VITALS: BMI 25.5
[2020-04-24 20:13] LABS: EOS % 3.3 % (0-4.5); HEMATOCRIT 42.5 % (32.4-45.2); HEMOGLOBIN 14.4 GM/dl (10.7-15.3); LYMPH % 12.8 % (8-40); MCH 28.9 pg (25.7-33.7); MCHC 33.8 g/dl (32.0-36.0); MEAN CELL VOLUME 85.4 fl (80-96); MEAN PLT VOLUME 7.8 fl (7.5-11.1); MONO % 3.2 % (3.8-10.2); NEUT % 79.7 % (42.8-82.8); PLATELET COUNT 292 K/MM3 (134-434); RBC 4.97 M/mm3 (3.60-5.2); RDW 12.9 % (11.6-15.6); WHITE BLOOD COUNT 15.4 K/mm3 (4.0-10.8)
[2020-04-24 20:15] LABS: EPITHELIAL CELLS FEW /hpf
[2020-04-24 20:22] LABS: ALBUMIN 4.6 g/dl (3.4-5.0); BILIRUBIN,TOTAL 1.5 mg/dl (0.2-1); CALCIUM 10.1 mg/dl (8.5-10); CREATININE 0.7 mg/dl (0.55-1.3); POTASSIUM 4.5 mmol/L (3.5-5.1); TOT PROT 7.8 g/dl (6.4-8.2)
[2020-04-24 20:28] LABS: INR 1.1 (0.82-1.09); PROTHROMBIN TIME (PATIENT) 12.2 SEC (10.2-13.0)
[2020-04-24] MEDS ORDERED: ACETAMINOPHEN 325 MG TABLET (FP) ONE (21:33)
[2020-04-24] MEDS: ACETAMINOPHEN 325 MG TABLET (FP) PO PRN (21:35)
[2020-04-25] MEDS: MORPHINE SULFATE 2 MG/ML VIAL IVPUSH PRN ×2 (01:15→21:28)
[2020-04-25] MEDS: INSULIN SLIDING SCALE (NOVOLOG) 1 VIAL SQ SCH ×4 (01:24→18:50)
[2020-04-25] MEDS ORDERED: CHOLECALCIFEROL (VIT D3) 400 UNIT (10 MCG) TABLET PO SCH (10:00)
[2020-04-25] MEDS ORDERED: LOSARTAN POTASSIUM 100 MG TABLET PO SCH (10:00)
[2020-04-25] MEDS: METOPROLOL TARTRATE 25 MG TABLET (FP) PO SCH (10:22)
[2020-04-25] MEDS: CALCIUM (OYSTER SHELL) 500 MG TABLET (FP) PO SCH ×2 (10:23→21:28)
[2020-04-25] MEDS: amLODIPine BESYLATE 5 MG TABLET (FP) PO SCH (10:23)
[2020-04-25] MEDS: ATORVASTATIN CA 10 MG TABLET (FP) PO SCH (21:27)
[2020-04-26] MEDS: LACTATED RINGERS SOLUTION 1,000 ML/1,000 ML INFUS.BAG IV SCH
[2020-04-26] MEDS: INSULIN SLIDING SCALE (NOVOLOG) 1 VIAL SQ SCH ×4 (00:14→16:59)
[2020-04-26] MEDS: CHOLECALCIFEROL (VIT D3) 1,000 UNIT (25 MCG) TABLET PO SCH (09:29)
[2020-04-26] MEDS: LOSARTAN POTASSIUM 50 MG TABLET PO SCH (09:29)
[2020-04-26] MEDS: CALCIUM (OYSTER SHELL) 500 MG TABLET (FP) PO SCH ×2 (09:29→21:07)
[2020-04-26] MEDS: amLODIPine BESYLATE 5 MG TABLET (FP) PO SCH (09:29)
[2020-04-26 09:35] LABS: AMORP URATES 1+ /hpf (NONE SEEN); EPITHELIAL CELLS FEW /hpf
[2020-04-26] MEDS: METOPROLOL TARTRATE 25 MG TABLET (FP) PO SCH (10:00)
[2020-04-26] MEDS ORDERED: ONDANSETRON 4 MG/2 ML VIAL IVPUSH PRN (11:54)
[2020-04-26] MEDS ORDERED: SUCCINYLCHOLINE CHLORIDE 200 MG/10 ML SYRINGE ONE (12:00)
[2020-04-26] MEDS ORDERED: PROPOFOL 20 ML ONE (12:09)
[2020-04-26] MEDS ORDERED: ceFAZolin SODIUM 1 GM VIAL ONE (12:30)
[2020-04-26] MEDS ORDERED: TRANEXAMIC ACID 1000 MG/10 ML VIAL ONE (12:30)
[2020-04-26] MEDS ORDERED: MIDAZOLAM HCL 2 MG/2 ML SINGLE DOSE VIAL ONE (12:31)
[2020-04-26] MEDS: MORPHINE SULFATE 2 MG/ML VIAL IVPUSH PRN ×2 (16:40→20:40)
[2020-04-26] MEDS: ATORVASTATIN CA 10 MG TABLET (FP) PO SCH (21:07)
[2020-04-26] MEDS: ACETAMINOPHEN 325 MG TABLET (FP) PO PRN (21:07)
[2020-04-27] MEDS: ACETAMINOPHEN 325 MG TABLET (FP) PO PRN ×3 (02:43→15:52)
[2020-04-27] MEDS: LACTATED RINGERS SOLUTION 1,000 ML/1,000 ML INFUS.BAG IV SCH (05:00)
[2020-04-27] MEDS: INSULIN SLIDING SCALE (NOVOLOG) 1 VIAL SQ SCH ×4 (05:00→18:19)
[2020-04-27] MEDS: CEFAZOLIN 1 GM/D5W 1 GM/50 ML BAG IVPB SCH ×3 (05:00→09:15)
[2020-04-27] MEDS: MORPHINE SULFATE 2 MG/ML VIAL IVPUSH PRN (05:45)
[2020-04-27 07:31] LABS: HEMATOCRIT 33.3 % (32.4-45.2); HEMOGLOBIN 10.7 GM/dl (10.7-15.3); MCH 27.5 pg (25.7-33.7); MCHC 32.2 g/dl (32.0-36.0); MEAN CELL VOLUME 85.6 fl (80-96); MEAN PLT VOLUME 7.3 fl (7.5-11.1); PLATELET COUNT 199 K/MM3 (134-434); RDW 12.6 % (11.6-15.6); WHITE BLOOD COUNT 9.5 K/mm3 (4.0-10.8)
[2020-04-27] MEDS: CHOLECALCIFEROL (VIT D3) 1,000 UNIT (25 MCG) TABLET PO SCH (09:15)
[2020-04-27] MEDS: METOPROLOL TARTRATE 25 MG TABLET (FP) PO SCH (09:15)
[2020-04-27] MEDS: amLODIPine BESYLATE 5 MG TABLET (FP) PO SCH (09:15)
[2020-04-27] MEDS: LOSARTAN POTASSIUM 50 MG TABLET PO SCH (09:17)
[2020-04-27] MEDS: CALCIUM (OYSTER SHELL) 500 MG TABLET (FP) PO SCH ×2 (09:17→20:59)
[2020-04-27] MEDS: ENOXAPARIN NA (PORCINE) 40 MG/0.4 ML DISP.SYRIN SQ SCH (13:20)
[2020-04-27] MEDS ORDERED: CEFTRIAXONE 1 GM in DEXTROSE 5%-WATER - 50 ML IVPB SCH (18:00)
[2020-04-27] MEDS ORDERED: cefTRIAXone SODIUM 1 GM VIAL ONE (18:14)
[2020-04-27] MEDS ORDERED: DEXTROSE 5%-WATER - 50 ML IVPB ONE (18:15)
[2020-04-27] MEDS: oxyCODONE HCL 5 MG TABLET PO PRN (20:59)
[2020-04-27] MEDS: ATORVASTATIN CA 10 MG TABLET (FP) PO SCH (20:59)
[2020-04-27] MEDS ORDERED: SENNOSIDES/DOCUSATE COMBO (SENNA PLUS) TABLET (UD) PO SCH (22:00)
[2020-04-28] MEDS: oxyCODONE HCL 5 MG TABLET PO PRN (04:30)
[2020-04-28] MEDS: ACETAMINOPHEN 325 MG TABLET (FP) PO PRN ×2 (04:30→09:11)
[2020-04-28 05:41] VITALS: BP 160/57; PULSE 95; TEMP 99
[2020-04-28] MEDS: INSULIN SLIDING SCALE (NOVOLOG) 1 VIAL SQ SCH ×3 (07:06→13:31)
[2020-04-28] MEDS: CHOLECALCIFEROL (VIT D3) 1,000 UNIT (25 MCG) TABLET PO SCH (09:11)
[2020-04-28] MEDS: LOSARTAN POTASSIUM 50 MG TABLET PO SCH (09:11)
[2020-04-28] MEDS: METOPROLOL TARTRATE 25 MG TABLET (FP) PO SCH (09:11)
[2020-04-28] MEDS: CALCIUM (OYSTER SHELL) 500 MG TABLET (FP) PO SCH (09:11)
[2020-04-28] MEDS: amLODIPine BESYLATE 5 MG TABLET (FP) PO SCH (09:12)
[2020-04-28] MEDS: ENOXAPARIN NA (PORCINE) 40 MG/0.4 ML DISP.SYRIN SQ SCH (09:12)
== END 2020-04-28 13:34 | disposition home or self-care (01) | DRG 481 ==
LOC: FER 18:27 → FM/S 20:36
PROVIDERS: ADMIT Hospitalist; ATTEND Nurse Practitioner Acute Care
PROC: 0QS734Z Reposition Left Upper Femur with Internal Fixation Device, Percutaneous Approach (ICD-10-PCS; principal; 2020-04-26 12:53)
DX: S72.002A Fracture of unspecified part of neck of left femur, initial encounter for closed fracture (principal); N39.0 Urinary tract infection, site not specified; E11.9 Type 2 diabetes mellitus without complications; E78.5 Hyperlipidemia, unspecified; I10 Essential (primary) hypertension; B96.20 Unspecified Escherichia coli [E. coli] as the cause of diseases classified elsewhere; W19.XXXA Unspecified fall, initial encounter; Y93.89 Activity, other specified; Y92.89 Other specified places as the place of occurrence of the external cause; Y99.8 Other external cause status
CPT/HCPCS: 36415; 71045-TC-FY; 73501-TC-LT-FY; 73523-TC-FY; 80053; 81003; 81015; 82962; 85025; 85027; 85610; 86850; 86900; 86901; 87086; 87186; 93005; 93010; 94760; 97116-GP; 97162-GP; 99285-25; C9803; U0003

== ENCOUNTER 2022-05-15 13:49 | Inpatient (IN) | payer OTHER ==
[2022-05-15] MEDS ORDERED: SODIUM CHLORIDE 1,837 ML IV ONE (14:23)
[2022-05-15] MEDS ORDERED: ACETAMINOPHEN 1000 MG/100 ML BAG IVPB ONE ×2 (14:26→20:47)
[2022-05-15] MEDS ORDERED: SODIUM CHLORIDE 1,000 ML IV ONE (14:26)
[2022-05-15] MEDS ORDERED: ACETAMINOPHEN INJECTION 100 ML IVPB ONE ×2 (14:46→20:50)
[2022-05-15 15:08] LABS: HEMATOCRIT 36.8 % (32.4-45.2); MCH 29.7 pg (25.7-33.7); MCHC 35.3 g/dl (32.0-36.0); MEAN CELL VOLUME 84.3 fl (80-96); MEAN PLT VOLUME 8.2 fl (7.5-11.1); PLATELET COUNT 259.8 10^3/uL (134-434); RBC 4.37 10^6/uL (3.60-5.2); RDW 14.5 % (11.6-15.6); WHITE BLOOD COUNT 16.8 10^3/uL (4.0-10.8)
[2022-05-15 15:11] LABS: INR 1.09 (0.83-1.09); PROTHROMBIN TIME (PATIENT) 12.6 SEC (9.7-13.0)
[2022-05-15 15:14] LABS: ACTIVATED PTT 26.2 SECONDS (25.2-36.5)
[2022-05-15 15:38] LABS: BILIRUBIN,TOTAL 1.3 mg/dl (0.2-1); CALCIUM 8.3 mg/dl (8.5-10); CREATININE 0.9 mg/dl (0.55-1.3); TOT PROT 5.4 g/dl (6.4-8.2)
[2022-05-15 15:40] LABS: EPITHELIAL CELLS MODERATE /hpf
[2022-05-15 16:22] LABS: VENOUS BASE EXCESS -4.4 mmol/L (-2-2); VENOUS O2 SATURATION 41.8 % (70-80); VENOUS PCO2 38.3 mmHg (38-52); VENOUS PH 7.348 (7.310-7.410)
[2022-05-15] MEDS ORDERED: SODIUM CHLORIDE 500 ML IV STA (17:04)
[2022-05-15] MEDS ORDERED: PIPERACILLIN/TAZOB 4.5 GM 4.5 GM in DEXTROSE 5%-WATER 100 ML IVPB ONE (17:31)
[2022-05-15] MEDS ORDERED: PIPERACILLIN/TAZOBACTAM 4.5 GM VIAL IVPB ONE (17:36)
[2022-05-15] MEDS ORDERED: VANCOMYCIN 1 GRAM (PRE-DOCKED) 1,000 MG/250 ML BAG IVPB ONE (17:45)
[2022-05-15 17:50] LABS: PLATELET ESTIMATE ADEQUATE
[2022-05-15] MEDS ORDERED: VANCOMYCIN 1,000 MG VIAL (RESTRICTED TO ID ONLY) ONE (18:12)
[2022-05-15] MEDS ORDERED: POTASSIUM CHLORIDE ORAL LIQUID 20 MEQ/15 ML PO ONE (18:42)
[2022-05-15] MEDS ORDERED: POTASSIUM CHLORIDE ORAL LIQUID 20 MEQ/15 ML ONE (18:43)
[2022-05-15 19:34] LABS: CALCIUM 8.6 mg/dl (8.5-10)
[2022-05-15] MEDS ORDERED: ONDANSETRON 4 MG/2 ML VIAL ONE (20:39)
[2022-05-15] MEDS ORDERED: ONDANSETRON 4 MG/2 ML VIAL IVPUSH ONE (20:49)
[2022-05-15 21:14] LABS: LACTIC ACID 3.2 mmol/L (0.4-2.0)
[2022-05-16] MEDS ORDERED: ACETAMINOPHEN 1000 MG/100 ML BAG IVPB PRN (07:44)
[2022-05-16] MEDS ORDERED: DEXTROSE 50%-WATER - 25 GM/50 ML VIAL IVPUSH PRN (07:44)
[2022-05-16] MEDS ORDERED: LACTATED RINGERS SOLUTION 1,000 ML IV SCH ×3 (07:45→10:45)
[2022-05-16] MEDS ORDERED: PIPERACILLIN/TAZOB 2.25 GM 2.25 GM in DEXTROSE 5%-WATER - 50 ML IVPB SCH (09:00)
[2022-05-16 09:14] LABS: HEMATOCRIT 34.1 % (32.4-45.2); HEMOGLOBIN 11.1 GM/dL (10.7-15.3); MCHC 32.5 g/dl (32.0-36.0); MEAN CELL VOLUME 86.2 fl (80-96); MEAN PLT VOLUME 7.9 fl (7.5-11.1); PLATELET COUNT 185 10^3/uL (134-434); RBC 3.95 M/mm3 (3.60-5.2); RDW 14.9 % (11.6-15.6)
[2022-05-16 09:29] LABS: CALCIUM 8.4 mg/dL (8.5-10.1)
[2022-05-16 09:30] LABS: ALBUMIN 3.1 g/dl (3.4-5.0); BLOOD UREA NITROGEN 27.1 mg/dL (7-18)
[2022-05-16 09:32] LABS: BILIRUBIN,DIRECT 0.3 mg/dL (0.0-0.2)
[2022-05-16 09:33] LABS: CREATININE 1.4 mg/dL (0.55-1.3)
[2022-05-16 09:34] LABS: TOT PROT 6.3 g/dl (6.4-8.2)
[2022-05-16 09:35] LABS: BILIRUBIN,TOTAL 1.2 mg/dL (0.2-1)
[2022-05-16] MEDS ORDERED: PIPERACILLIN/TAZOB 2.25 GM 2.25 GM in DEXTROSE 5%-WATER - 50 ML IVPB ONE (09:41)
[2022-05-16] MEDS: TAMSULOSIN HCL 0.4 MG CAP PO SCH (10:02)
[2022-05-16 10:09] LABS: WHITE BLOOD COUNT 30.4 K/mm3 (4.0-10.0)
[2022-05-16 10:12] LABS: LACTIC ACID 4.2 mmol/L (0.4-2.0)
[2022-05-16 10:37] LABS: ANISOCYTOSIS 0; HELMET CELLS 0; HOWELL-JOLLY BODIES 0; MACROCYTOSIS 0; OVALOCYTE 0; ROULEAU 0; SICKELED CELLS 0; TARGET CELLS 0; TEAR DROP CELLS 0; TOXIC GRANULATION 0
[2022-05-16] MEDS ORDERED: MIDAZOLAM HCL 2 MG/2 ML SINGLE DOSE VIAL ONE (11:02)
[2022-05-16] MEDS ORDERED: FENTANYL CITRATE/PF 50 MCG/ML VIAL ONE ×2 (11:03→11:43)
[2022-05-16] MEDS: INSULIN SLIDING SCALE (NOVOLOG) 1 VIAL SQ SCH ×2 (12:35→16:27)
[2022-05-16] MEDS: PIPERACILLIN/TAZOB 2.25 GM 2.25 GM in DEXTROSE 5%-WATER - 50 ML IVPB SCH (12:55)
[2022-05-16] MEDS ORDERED: METOPROLOL TARTRATE 50 MG TABLET (FP) PO ONE (13:15)
[2022-05-16] MEDS ORDERED: HEPARIN NA (PORCINE) 5,000 UNITS/ML 1ML VIAL SQ SCH (14:00)
[2022-05-16] MEDS ORDERED: METOPROLOL TARTRATE 50 MG TABLET (FP) PO SCH (15:00)
[2022-05-16] MEDS: PIPERACILLIN/TAZOB 3.375 GM 3.375 GM in DEXTROSE 5%-WATER - 50 ML IVPB SCH (18:03)
[2022-05-16] MEDS: METOPROLOL TARTRATE 50 MG TABLET (FP) PO SCH (21:32)
[2022-05-16] MEDS: ATORVASTATIN CA 10 MG TABLET (FP) PO SCH (21:32)
[2022-05-16] MEDS ORDERED: PATIENT'S OWN MEDICATION (NON-FORMULARY) (Colesevelam Hcl [Welchol] 625 MG Tablet) PO SCH (22:00)
[2022-05-16] MEDS ORDERED: METOPROLOL TARTRATE 25 MG TABLET (FP) PO SCH (22:00)
[2022-05-17] MEDS: PIPERACILLIN/TAZOB 3.375 GM 3.375 GM in DEXTROSE 5%-WATER - 50 ML IVPB SCH ×3 (02:28→17:49)
[2022-05-17] MEDS: INSULIN SLIDING SCALE (NOVOLOG) 1 VIAL SQ SCH ×3 (06:30→17:49)
[2022-05-17] MEDS ORDERED: METOPROLOL TARTRATE 50 MG TABLET (FP) PO SCH (07:00)
[2022-05-17 07:19] LABS: HEMATOCRIT 27.9 % (32.4-45.2); HEMOGLOBIN 9.3 GM/dL (10.7-15.3); MCH 27.9 pg (25.7-33.7); MCHC 33.3 g/dl (32.0-36.0); MEAN CELL VOLUME 83.8 fl (80-96); MEAN PLT VOLUME 8.2 fl (7.5-11.1); PLATELET COUNT 134 10^3/uL (134-434); RBC 3.33 M/mm3 (3.60-5.2); RDW 14.7 % (11.6-15.6); WHITE BLOOD COUNT 19.3 K/mm3 (4.0-10.0)
[2022-05-17 09:37] LABS: BLOOD UREA NITROGEN 27.4 mg/dL (7-18); CALCIUM 7.9 mg/dL (8.5-10.1)
[2022-05-17 09:40] LABS: BILIRUBIN,DIRECT 0.3 mg/dL (0.0-0.2)
[2022-05-17] MEDS: METOPROLOL TARTRATE 50 MG TABLET (FP) PO SCH ×2 (09:40→21:25)
[2022-05-17] MEDS: TAMSULOSIN HCL 0.4 MG CAP PO SCH (09:40)
[2022-05-17] MEDS: PANTOPRAZOLE 40 MG TABLET PO SCH (09:40)
[2022-05-17] MEDS: ASPIRIN COATED 81 MG TABLET.EC PO SCH (09:40)
[2022-05-17 09:41] LABS: BILIRUBIN,TOTAL 1.1 mg/dL (0.2-1)
[2022-05-17 09:44] LABS: ALBUMIN 2.3 g/dl (3.4-5.0)
[2022-05-17 09:51] LABS: ANISOCYTOSIS 2+; MACROCYTOSIS 0; OVALOCYTE 1+; PLATELET ESTIMATE DECREASED
[2022-05-17 12:52] LABS: HEMATOCRIT 29.3 % (32.4-45.2); HEMOGLOBIN 9.6 GM/dL (10.7-15.3); MCH 27.9 pg (25.7-33.7); MCHC 32.9 g/dl (32.0-36.0); MEAN PLT VOLUME 8.2 fl (7.5-11.1); PLATELET COUNT 137 10^3/uL (134-434); RBC 3.45 M/mm3 (3.60-5.2); RDW 14.8 % (11.6-15.6); WHITE BLOOD COUNT 20.9 K/mm3 (4.0-10.0)
[2022-05-17 13:10] LABS: BLOOD UREA NITROGEN 29.5 mg/dL (7-18)
[2022-05-17 13:13] LABS: CALCIUM 8.4 mg/dL (8.5-10.1)
[2022-05-17 13:16] LABS: CREATININE 1.1 mg/dL (0.55-1.3)
[2022-05-17] MEDS: ATORVASTATIN CA 10 MG TABLET (FP) PO SCH (21:25)
[2022-05-18] MEDS: PIPERACILLIN/TAZOB 3.375 GM 3.375 GM in DEXTROSE 5%-WATER - 50 ML IVPB SCH ×3 (01:16→17:00)
[2022-05-18] MEDS: INSULIN SLIDING SCALE (NOVOLOG) 1 VIAL SQ SCH ×3 (06:13→16:19)
[2022-05-18 08:11] LABS: CARCINOEMBRYONIC ANTIGEN 1.9 ng/mL (0.0-4.7)
[2022-05-18 08:35] LABS: BASO % 0.4 % (0-2.0); HEMATOCRIT 28.2 % (32.4-45.2); HEMOGLOBIN 9.4 GM/dL (10.7-15.3); LYMPH % 6.2 % (8-40); MCH 28.1 pg (25.7-33.7); MCHC 33.5 g/dl (32.0-36.0); MEAN CELL VOLUME 83.8 fl (80-96); MEAN PLT VOLUME 8.2 fl (7.5-11.1); MONO % 2.3 % (3.8-10.2); NEUT % 87.1 % (42.8-82.8); PLATELET COUNT 142 10^3/uL (134-434); RBC 3.36 M/mm3 (3.60-5.2); RDW 14.6 % (11.6-15.6); WHITE BLOOD COUNT 15.7 K/mm3 (4.0-10.0)
[2022-05-18 08:55] LABS: ALBUMIN 2.3 g/dl (3.4-5.0); PHOSPHOROUS 2.2 mg/dL (2.5-4.9)
[2022-05-18 08:56] LABS: BILIRUBIN,TOTAL 1.3 mg/dL (0.2-1); BLOOD UREA NITROGEN 22.3 mg/dL (7-18); TOT PROT 5.2 g/dl (6.4-8.2)
[2022-05-18 08:58] LABS: CALCIUM 8.2 mg/dL (8.5-10.1); CREATININE 0.8 mg/dL (0.55-1.3); MAGNESIUM 1.7 mg/dL (1.8-2.4)
[2022-05-18] MEDS: METOPROLOL TARTRATE 50 MG TABLET (FP) PO SCH ×2 (10:02→21:16)
[2022-05-18] MEDS: TAMSULOSIN HCL 0.4 MG CAP PO SCH (10:02)
[2022-05-18] MEDS: ASPIRIN COATED 81 MG TABLET.EC PO SCH (10:02)
[2022-05-18] MEDS: PANTOPRAZOLE 40 MG TABLET PO SCH (10:03)
[2022-05-18] MEDS ORDERED: MAGNESIUM SULFATE IN WATER 2 GM/50 ML IVPB IVPB ONE (14:30)
[2022-05-18] MEDS ORDERED: LEVALBUTEROL HCL 0.31 MG/3 ML VIAL.NEB IH PRN (14:57)
[2022-05-18] MEDS ORDERED: POTASSIUM PHOSPHATE 30 MM in SODIUM CHLORIDE 500 ML IVPB ONE (15:00)
[2022-05-18] MEDS: ATORVASTATIN CA 10 MG TABLET (FP) PO SCH (21:16)
[2022-05-19] MEDS: PIPERACILLIN/TAZOB 3.375 GM 3.375 GM in DEXTROSE 5%-WATER - 50 ML IVPB SCH (01:15)
[2022-05-19] MEDS: INSULIN SLIDING SCALE (NOVOLOG) 1 VIAL SQ SCH ×3 (06:26→16:57)
[2022-05-19 08:15] LABS: BASO % 0.4 % (0-2.0); EOS % 3.1 % (0-4.5); HEMATOCRIT 29.4 % (32.4-45.2); HEMOGLOBIN 9.8 GM/dL (10.7-15.3); LYMPH % 9.1 % (8-40); MCHC 33.5 g/dl (32.0-36.0); MEAN CELL VOLUME 83.6 fl (80-96); MONO % 6.1 % (3.8-10.2); NEUT % 81.3 % (42.8-82.8); PLATELET COUNT 164 10^3/uL (134-434); RBC 3.51 M/mm3 (3.60-5.2); RDW 14.5 % (11.6-15.6); WHITE BLOOD COUNT 12.1 K/mm3 (4.0-10.0)
[2022-05-19 08:45] LABS: CALCIUM 8.1 mg/dL (8.5-10.1)
[2022-05-19 08:46] LABS: ALBUMIN 2.2 g/dl (3.4-5.0); BLOOD UREA NITROGEN 17.4 mg/dL (7-18); MAGNESIUM 1.7 mg/dL (1.8-2.4)
[2022-05-19 08:49] LABS: CREATININE 0.8 mg/dL (0.55-1.3); PHOSPHOROUS 2.8 mg/dL (2.5-4.9)
[2022-05-19 08:50] LABS: BILIRUBIN,TOTAL 1.2 mg/dL (0.2-1); TOT PROT 5.2 g/dl (6.4-8.2)
[2022-05-19] MEDS: PANTOPRAZOLE 40 MG TABLET PO SCH (09:49)
[2022-05-19] MEDS: TAMSULOSIN HCL 0.4 MG CAP PO SCH (09:50)
[2022-05-19] MEDS: CEFAZOLIN 1 GM in DEXTROSE 5%-WATER - 50 ML IVPB SCH ×2 (09:50→17:01)
[2022-05-19] MEDS: METOPROLOL TARTRATE 50 MG TABLET (FP) PO SCH ×2 (09:50→22:39)
[2022-05-19] MEDS: ASPIRIN COATED 81 MG TABLET.EC PO SCH (09:50)
[2022-05-19] MEDS ORDERED: MAGNESIUM SULFATE IN WATER 2 GM/50 ML IVPB IVPB ONE (11:15)
[2022-05-19] MEDS: APIXABAN 2.5 MG TABLET PO SCH ×2 (11:51→22:39)
[2022-05-19] MEDS: ATORVASTATIN CA 10 MG TABLET (FP) PO SCH (22:39)
[2022-05-20] MEDS: CEFAZOLIN 1 GM in DEXTROSE 5%-WATER - 50 ML IVPB SCH ×3 (01:36→18:02)
[2022-05-20] MEDS: INSULIN SLIDING SCALE (NOVOLOG) 1 VIAL SQ SCH ×3 (06:31→17:33)
[2022-05-20 07:30] LABS: HEMATOCRIT 27.7 % (32.4-45.2); HEMOGLOBIN 9.5 GM/dL (10.7-15.3); MCH 28.5 pg (25.7-33.7); MCHC 34.4 g/dl (32.0-36.0); MEAN CELL VOLUME 83.1 fl (80-96); MEAN PLT VOLUME 7.6 fl (7.5-11.1); PLATELET COUNT 178 10^3/uL (134-434); RBC 3.33 M/mm3 (3.60-5.2); RDW 14.2 % (11.6-15.6)
[2022-05-20] MEDS ORDERED: DEXTROSE 50%-WATER - 25 GM/50 ML VIAL IVPUSH PRN (07:30)
[2022-05-20 07:56] LABS: ALBUMIN 2.2 g/dl (3.4-5.0)
[2022-05-20 07:59] LABS: CREATININE 0.7 mg/dL (0.55-1.3); PHOSPHOROUS 2.2 mg/dL (2.5-4.9)
[2022-05-20 08:00] LABS: BILIRUBIN,TOTAL 0.7 mg/dL (0.2-1); TOT PROT 5.3 g/dl (6.4-8.2)
[2022-05-20] MEDS: METOPROLOL TARTRATE 50 MG TABLET (FP) PO SCH ×2 (09:01→21:38)
[2022-05-20] MEDS: APIXABAN 2.5 MG TABLET PO SCH ×2 (09:01→21:38)
[2022-05-20] MEDS: TAMSULOSIN HCL 0.4 MG CAP PO SCH (09:01)
[2022-05-20] MEDS: PANTOPRAZOLE 40 MG TABLET PO SCH (09:05)
[2022-05-20] MEDS: ASPIRIN COATED 81 MG TABLET.EC PO SCH (09:06)
[2022-05-20 09:22] LABS: ANISOCYTOSIS 0; HELMET CELLS 0; HOWELL-JOLLY BODIES 0; MACROCYTOSIS 0; OVALOCYTE 0; ROULEAU 0; SICKELED CELLS 0; TARGET CELLS 0; TEAR DROP CELLS 0; TOXIC GRANULATION 0
[2022-05-20] MEDS: ATORVASTATIN CA 10 MG TABLET (FP) PO SCH (21:40)
[2022-05-20 23:59] VITALS: BMI 23.8
[2022-05-21] MEDS: CEFAZOLIN 1 GM in DEXTROSE 5%-WATER - 50 ML IVPB SCH ×3 (03:22→17:03)
[2022-05-21] MEDS: INSULIN SLIDING SCALE (NOVOLOG) 1 VIAL SQ SCH ×3 (06:06→16:57)
[2022-05-21 07:51] LABS: BASO % 0.5 % (0-2.0); EOS % 3.3 % (0-4.5); HEMOGLOBIN 9.3 GM/dL (10.7-15.3); LYMPH % 14.5 % (8-40); MCH 28.5 pg (25.7-33.7); MCHC 34.3 g/dl (32.0-36.0); MEAN PLT VOLUME 7.1 fl (7.5-11.1); MONO % 8.4 % (3.8-10.2); NEUT % 73.3 % (42.8-82.8); PLATELET COUNT 222 10^3/uL (134-434); RBC 3.25 M/mm3 (3.60-5.2); RDW 14.2 % (11.6-15.6); WHITE BLOOD COUNT 9.1 K/mm3 (4.0-10.0)
[2022-05-21] MEDS: TAMSULOSIN HCL 0.4 MG CAP PO SCH (08:33)
[2022-05-21 08:55] LABS: CALCIUM 8.1 mg/dL (8.5-10.1)
[2022-05-21 08:56] LABS: ALBUMIN 2.3 g/dl (3.4-5.0)
[2022-05-21 09:01] LABS: BILIRUBIN,TOTAL 0.8 mg/dL (0.2-1); TOT PROT 5.3 g/dl (6.4-8.2)
[2022-05-21 09:05] LABS: BLOOD UREA NITROGEN 14.6 mg/dL (7-18); CREATININE 0.7 mg/dL (0.55-1.3)
[2022-05-21] MEDS: ASPIRIN COATED 81 MG TABLET.EC PO SCH (09:05)
[2022-05-21] MEDS: PANTOPRAZOLE 40 MG TABLET PO SCH (09:05)
[2022-05-21] MEDS: METOPROLOL TARTRATE 50 MG TABLET (FP) PO SCH ×2 (09:05→21:33)
[2022-05-21] MEDS: APIXABAN 2.5 MG TABLET PO SCH ×2 (09:05→21:33)
[2022-05-21] MEDS ORDERED: BENZOCAINE/MENTH/CETYLPYRD CL 1 EACH LOZENGE MM PRN (14:18)
[2022-05-21] MEDS: MULTIVITAMINS (DAILY MVI) TABLET (FP) PO SCH (15:26)
[2022-05-21] MEDS: LYTES/YERBA SANTA 240 ML BOTTLE MM SCH (15:26)
[2022-05-21] MEDS: MAG HYDROX/ALH/SMC/DPHA/LIDO 240 ML MOUTHWASH MM SCH ×2 (18:47→23:18)
[2022-05-21] MEDS: ATORVASTATIN CA 10 MG TABLET (FP) PO SCH (21:33)
[2022-05-22] MEDS: CEFAZOLIN 1 GM in DEXTROSE 5%-WATER - 50 ML IVPB SCH ×3 (01:12→18:25)
[2022-05-22] MEDS: MAG HYDROX/ALH/SMC/DPHA/LIDO 240 ML MOUTHWASH MM SCH ×3 (06:28→18:26)
[2022-05-22] MEDS: INSULIN SLIDING SCALE (NOVOLOG) 1 VIAL SQ SCH ×3 (06:29→18:26)
[2022-05-22 07:43] LABS: BASO % 0.3 % (0-2.0); EOS % 3.1 % (0-4.5); HEMATOCRIT 27.8 % (32.4-45.2); HEMOGLOBIN 9.5 GM/dL (10.7-15.3); LYMPH % 15.9 % (8-40); MCH 28.4 pg (25.7-33.7); MCHC 34.3 g/dl (32.0-36.0); MEAN CELL VOLUME 82.7 fl (80-96); MEAN PLT VOLUME 7.2 fl (7.5-11.1); MONO % 6.7 % (3.8-10.2); PLATELET COUNT 267 10^3/uL (134-434); RBC 3.36 M/mm3 (3.60-5.2); RDW 14.2 % (11.6-15.6); WHITE BLOOD COUNT 9.1 K/mm3 (4.0-10.0)
[2022-05-22 08:19] LABS: CALCIUM 8.3 mg/dL (8.5-10.1)
[2022-05-22 08:20] LABS: ALBUMIN 2.4 g/dl (3.4-5.0)
[2022-05-22 08:22] LABS: CREATININE 0.7 mg/dL (0.55-1.3)
[2022-05-22 08:24] LABS: BILIRUBIN,TOTAL 0.6 mg/dL (0.2-1); TOT PROT 5.5 g/dl (6.4-8.2)
[2022-05-22 08:27] LABS: BLOOD UREA NITROGEN 15.1 mg/dL (7-18)
[2022-05-22] MEDS: METOPROLOL TARTRATE 50 MG TABLET (FP) PO SCH ×2 (09:18→21:58)
[2022-05-22] MEDS: APIXABAN 2.5 MG TABLET PO SCH ×2 (09:18→21:58)
[2022-05-22] MEDS: PANTOPRAZOLE 40 MG TABLET PO SCH (09:18)
[2022-05-22] MEDS: TAMSULOSIN HCL 0.4 MG CAP PO SCH (09:18)
[2022-05-22] MEDS: ASPIRIN COATED 81 MG TABLET.EC PO SCH (09:19)
[2022-05-22] MEDS: MULTIVITAMINS (DAILY MVI) TABLET (FP) PO SCH (09:19)
[2022-05-22] MEDS: LYTES/YERBA SANTA 240 ML BOTTLE MM SCH (09:21)
[2022-05-22] MEDS: ATORVASTATIN CA 10 MG TABLET (FP) PO SCH (21:58)
[2022-05-22] MEDS ORDERED: DEXTROSE 50%-WATER 25 GM/50 ML DISP.SYRIN IVPUSH PRN (22:45)
[2022-05-23] MEDS: CEFAZOLIN 1 GM in DEXTROSE 5%-WATER - 50 ML IVPB SCH (03:55)
[2022-05-23] MEDS: INSULIN SLIDING SCALE (NOVOLOG) 1 VIAL SQ SCH ×2 (06:40→11:54)
[2022-05-23] MEDS: MAG HYDROX/ALH/SMC/DPHA/LIDO 240 ML MOUTHWASH MM SCH ×3 (06:40→12:06)
[2022-05-23] MEDS: APIXABAN 2.5 MG TABLET PO SCH (09:10)
[2022-05-23] MEDS: METOPROLOL TARTRATE 50 MG TABLET (FP) PO SCH (09:10)
[2022-05-23] MEDS: ASPIRIN COATED 81 MG TABLET.EC PO SCH (09:10)
[2022-05-23] MEDS: MULTIVITAMINS (DAILY MVI) TABLET (FP) PO SCH (09:10)
[2022-05-23] MEDS: TAMSULOSIN HCL 0.4 MG CAP PO SCH (09:11)
[2022-05-23] MEDS: PANTOPRAZOLE 40 MG TABLET PO SCH (09:11)
[2022-05-23] MEDS: LYTES/YERBA SANTA 240 ML BOTTLE MM SCH (09:13)
[2022-05-23] MEDS ORDERED: amLODIPine BESYLATE 5 MG TABLET (FP) PO SCH (10:00)
[2022-05-23] MEDS ORDERED: LOSARTAN POTASSIUM 50 MG TABLET PO SCH (10:00)
[2022-05-23] MEDS ORDERED: CEPHALEXIN MONOHYDRATE 500 MG CAPSULE (UD) PO SCH (10:00)
[2022-05-23 11:07] VITALS: BP 171/58; PULSE 76; RESP 18; TEMP 98.4
== END 2022-05-23 14:39 | disposition home or self-care (01) | DRG 872 ==
LOC: FER 13:49 → J7W 05-16 03:41 → J4W 05-17 10:02
PROVIDERS: ADMIT Urology; ATTEND Internal Medicine
PROC: 0T9130Z Drainage of Left Kidney with Drainage Device, Percutaneous Approach (ICD-10-PCS; principal; 2022-05-16)
DX: A41.51 Sepsis due to Escherichia coli [E. coli] (principal); E87.20 Acidosis, unspecified; N13.6 Pyonephrosis; N17.9 Acute kidney failure, unspecified; M87.852 Other osteonecrosis, left femur; J98.11 Atelectasis; I47.1 Supraventricular tachycardia; I10 Essential (primary) hypertension; E11.9 Type 2 diabetes mellitus without complications; E78.5 Hyperlipidemia, unspecified; Z79.84 Long term (current) use of oral hypoglycemic drugs; I25.10 Atherosclerotic heart disease of native coronary artery without angina pectoris; N39.498 Other specified urinary incontinence; K83.8 Other specified diseases of biliary tract; E87.6 Hypokalemia; I48.91 Unspecified atrial fibrillation; D64.9 Anemia, unspecified; K52.9 Noninfective gastroenteritis and colitis, unspecified; I27.20 Pulmonary hypertension, unspecified
CPT/HCPCS: 0241U-QW; 36415; 50432; 71045-TC-FY; 74177-TC; 80048; 80053; 80076; 81003; 81015; 82378; 82550; 82803; 82962; 83516; 83605; 83735; 84100; 84484; 85025; 85027; 85610; 85730; 86140; 86255; 86671; 87040; 87086; 87186; 87324; 87449; 93005; 93010; 93306-TC; 94010; 97116-GP; 97162-GP; 99291; C1729; C1769; Q9967

== ENCOUNTER 2022-06-15 04:08 | Inpatient (IN) | payer OTHER ==
[2022-06-12 17:13] VITALS: BMI 23.9
[~2022-06-15 04:08] MED LIST: ceFAZolin SODIUM 1 GM VIAL IVPB ONE
[2022-06-15] MEDS ORDERED: ceFAZolin SODIUM 1 GM VIAL IVPB ONE (11:38)
[2022-06-15] MEDS ORDERED: PROPOFOL 20 ML ONE (11:45)
[2022-06-15] MEDS ORDERED: SUCCINYLCHOLINE CHLORIDE 200 MG/10 ML SYRINGE ONE (11:45)
[2022-06-15] MEDS ORDERED: DEXAMETHASONE SOD PHOSPHATE 4 MG/1 ML VIAL ONE (11:58)
[2022-06-15] MEDS ORDERED: KETOROLAC TROMETHAMINE 30 MG/1 ML VIAL ONE (11:58)
[2022-06-15] MEDS ORDERED: ONDANSETRON 4 MG/2 ML VIAL ONE ×2 (11:58→15:47)
[2022-06-15] MEDS ORDERED: ceFAZolin SODIUM 1 GM VIAL ONE ×2 (11:58)
[2022-06-15] MEDS ORDERED: ONDANSETRON 4 MG/2 ML VIAL IVPUSH PRN (12:28)
[2022-06-15] MEDS ORDERED: oxyCODONE HCL 5 MG TABLET ONE ×2 (13:47→14:09)
[2022-06-15] MEDS: oxyCODONE HCL 5 MG TABLET PO PRN (13:51)
[2022-06-15] MEDS ORDERED: oxyCODONE HCL 5 MG TABLET PO ONE (14:32)
[2022-06-15] MEDS: ACETAMINOPHEN 325 MG TABLET (FP) PO PRN (16:05)
[2022-06-15 18:22] LABS: EPI CELLS 9 /uL (0-25.1); HYALINE CASTS 1 /uL (0-3.1); PH,URINE 5.5 (5.0-8.0); URINE APPEARANCE CLEAR; URINE BACTERIA 10 /uL (0-1359); URINE BILIRUBIN NEGATIVE (NEGATIVE); URINE COLOR YELLOW; URINE GLUCOSE (UA) NEGATIVE (NEGATIVE); URINE KETONE NEGATIVE (NEGATIVE); URINE LEUK ESTERASE 2+ (NEGATIVE); URINE NITRITE NEGATIVE (NEGATIVE); URINE PROTEIN 2+ (NEGATIVE); URINE RBC 1223 /uL (0-23.9); URINE UROBILINOGEN 0.2 mg/dL (0.2-1.0); URINE WBC 199 /uL (0-25.8)
[2022-06-15 19:00] LABS: BASO % 0.3 % (0-2.0); EOS % 0.6 % (0-4.5); HEMATOCRIT 27.4 % (32.4-45.2); HEMOGLOBIN 8.8 GM/dL (10.7-15.3); LYMPH % 2.6 % (8-40); MCH 26.1 pg (25.7-33.7); MCHC 31.9 g/dl (32.0-36.0); MEAN CELL VOLUME 81.8 fl (80-96); MEAN PLT VOLUME 6.8 fl (7.5-11.1); MONO % 1.1 % (3.8-10.2); NEUT % 95.4 % (42.8-82.8); PLATELET COUNT 217 10^3/uL (134-434); RBC 3.35 M/mm3 (3.60-5.2); RDW 14.6 % (11.6-15.6); WHITE BLOOD COUNT 16.2 K/mm3 (4.0-10.0)
[2022-06-15] MEDS ORDERED: SODIUM CHLORIDE 1,000 ML IV SCH (19:15)
[2022-06-15 19:23] LABS: CALCIUM 8.5 mg/dL (8.5-10.1)
[2022-06-15 19:24] LABS: ALBUMIN 2.9 g/dl (3.4-5.0); MAGNESIUM 1.4 mg/dL (1.8-2.4)
[2022-06-15 19:27] LABS: CREATININE 0.8 mg/dL (0.55-1.3); PHOSPHOROUS 2.4 mg/dL (2.5-4.9)
[2022-06-15 19:28] LABS: TOT PROT 5.9 g/dl (6.4-8.2)
[2022-06-15 19:29] LABS: BILIRUBIN,TOTAL 1.1 mg/dL (0.2-1)
[2022-06-15] MEDS: CEFTRIAXONE 1 GM in DEXTROSE 5%-WATER - 50 ML IVPB SCH (19:31)
[2022-06-15 20:16] LABS: ANISOCYTOSIS 0; MACROCYTOSIS 0
[2022-06-15 20:17] LABS: OVALOCYTE 1+
[2022-06-15] MEDS: ATORVASTATIN CA 10 MG TABLET (FP) PO SCH ×2 (22:14)
[2022-06-16] MEDS: ACETAMINOPHEN 325 MG TABLET (FP) PO PRN (04:02)
[2022-06-16] MEDS: INSULIN SLIDING SCALE (NOVOLOG) 1 VIAL SQ SCH ×4 (06:43→21:40)
[2022-06-16] MEDS: TAMSULOSIN HCL 0.4 MG CAP PO SCH (09:13)
[2022-06-16] MEDS: CEFTRIAXONE 1 GM in DEXTROSE 5%-WATER - 50 ML IVPB SCH (09:13)
[2022-06-16] MEDS: PANTOPRAZOLE 40 MG TABLET PO SCH (09:13)
[2022-06-16 10:15] LABS: BASO % 0.5 % (0-2.0); EOS % 1.8 % (0-4.5); HEMATOCRIT 26.7 % (32.4-45.2); HEMOGLOBIN 8.7 GM/dL (10.7-15.3); LYMPH % 10.3 % (8-40); MCH 27.5 pg (25.7-33.7); MCHC 32.7 g/dl (32.0-36.0); MEAN PLT VOLUME 7.1 fl (7.5-11.1); MONO % 4.9 % (3.8-10.2); NEUT % 82.5 % (42.8-82.8); PLATELET COUNT 203 10^3/uL (134-434); RBC 3.18 M/mm3 (3.60-5.2); RDW 14.7 % (11.6-15.6)
[2022-06-16 10:35] LABS: CALCIUM 8.3 mg/dL (8.5-10.1)
[2022-06-16 10:36] LABS: ALBUMIN 2.6 g/dl (3.4-5.0); BLOOD UREA NITROGEN 13.2 mg/dL (7-18); MAGNESIUM 1.6 mg/dL (1.8-2.4)
[2022-06-16 10:39] LABS: CREATININE 0.9 mg/dL (0.55-1.3)
[2022-06-16 10:41] LABS: TOT PROT 5.6 g/dl (6.4-8.2)
[2022-06-16] MEDS ORDERED: MAGNESIUM OXIDE 400 MG TABLET (FP) PO ONE (11:58)
[2022-06-16] MEDS: oxyCODONE HCL 5 MG TABLET PO PRN (15:23)
[2022-06-16] MEDS: ATORVASTATIN CA 10 MG TABLET (FP) PO SCH (21:40)
[2022-06-16] MEDS: DOCUSATE SODIUM 100 MG CAPSULE (FP) PO SCH (21:40)
[2022-06-16] MEDS: APIXABAN 2.5 MG TABLET PO SCH (21:40)
[2022-06-16] MEDS: METOPROLOL TARTRATE 50 MG TABLET (FP) PO SCH (21:40)
[2022-06-16] MEDS: POLYETHYLENE GLYCOL (HEALTHYLAX) 3350 17 GM PACKET PO SCH (21:41)
[2022-06-17] MEDS: INSULIN SLIDING SCALE (NOVOLOG) 1 VIAL SQ SCH ×2 (06:30→12:25)
[2022-06-17] MEDS: DOCUSATE SODIUM 100 MG CAPSULE (FP) PO SCH (06:30)
[2022-06-17 06:44] VITALS: BP 154/71; PULSE 72; RESP 18; TEMP 98.9
[2022-06-17] MEDS: CEFTRIAXONE 1 GM in DEXTROSE 5%-WATER - 50 ML IVPB SCH (09:04)
[2022-06-17] MEDS: METOPROLOL TARTRATE 50 MG TABLET (FP) PO SCH (09:05)
[2022-06-17] MEDS: TAMSULOSIN HCL 0.4 MG CAP PO SCH (09:05)
[2022-06-17] MEDS: APIXABAN 2.5 MG TABLET PO SCH (09:05)
[2022-06-17] MEDS: PANTOPRAZOLE 40 MG TABLET PO SCH (09:05)
[2022-06-17] MEDS: POLYETHYLENE GLYCOL (HEALTHYLAX) 3350 17 GM PACKET PO SCH (09:12)
[2022-06-17 09:54] LABS: CALCIUM 8.4 mg/dL (8.5-10.1)
[2022-06-17 09:55] LABS: ALBUMIN 2.9 g/dl (3.4-5.0); BLOOD UREA NITROGEN 10.2 mg/dL (7-18); MAGNESIUM 1.8 mg/dL (1.8-2.4)
[2022-06-17 09:58] LABS: CREATININE 0.7 mg/dL (0.55-1.3)
[2022-06-17 09:59] LABS: TOT PROT 6.1 g/dl (6.4-8.2)
[2022-06-17] MEDS ORDERED: amLODIPine BESYLATE 5 MG TABLET (FP) PO SCH (10:00)
[2022-06-17] MEDS ORDERED: LOSARTAN POTASSIUM 50 MG TABLET PO SCH (10:00)
[2022-06-17] MEDS ORDERED: CALCIUM (OYSTER SHELL) 500 MG TABLET (FP) PO SCH (10:30)
[2022-06-17] MEDS ORDERED: INSULIN (NOVOLOG) ASPART 100 UNITS/ML 10ML VIAL ONE ×2 (11:04→11:48)
[2022-06-17 11:06] LABS: BASO % 0.4 % (0-2.0); HEMATOCRIT 27.9 % (32.4-45.2); HEMOGLOBIN 9.4 GM/dL (10.7-15.3); LYMPH % 11.4 % (8-40); MCH 27.5 pg (25.7-33.7); MCHC 33.6 g/dl (32.0-36.0); MEAN CELL VOLUME 81.8 fl (80-96); MEAN PLT VOLUME 7.6 fl (7.5-11.1); NEUT % 80.2 % (42.8-82.8); PLATELET COUNT 203 10^3/uL (134-434); RBC 3.41 M/mm3 (3.60-5.2); RDW 14.7 % (11.6-15.6); WHITE BLOOD COUNT 12.3 K/mm3 (4.0-10.0)
== END 2022-06-17 13:10 | disposition home or self-care (01) | DRG 660 ==
LOC: JASU-SURG 04:08 → INTOOBSV 15:33 → J2C 15:33 → UNDOADMOB 15:33 → J2C 17:03 → J8W 19:12 → OBSVTOIN 06-16 06:56
PROVIDERS: ADMIT Urology; ATTEND Nurse Practitioner Family
PROC: 0TC18ZZ Extirpation of Matter from Left Kidney, Via Natural or Artificial Opening Endoscopic (ICD-10-PCS; 2022-06-15)
PROC: 0TP5X0Z Removal of Drainage Device from Kidney, External Approach (ICD-10-PCS; 2022-06-15)
PROC: BT1FZZZ Fluoroscopy of Left Kidney, Ureter and Bladder (ICD-10-PCS; 2022-06-15)
PROC: 0T778DZ Dilation of Left Ureter with Intraluminal Device, Via Natural or Artificial Opening Endoscopic (ICD-10-PCS; principal; 2022-06-15 11:00)
DX: N39.0 Urinary tract infection, site not specified (principal); I48.92 Unspecified atrial flutter; N20.1 Calculus of ureter; I10 Essential (primary) hypertension; I25.10 Atherosclerotic heart disease of native coronary artery without angina pectoris; E11.9 Type 2 diabetes mellitus without complications; E78.5 Hyperlipidemia, unspecified; I48.91 Unspecified atrial fibrillation; Z79.01 Long term (current) use of anticoagulants; Z79.4 Long term (current) use of insulin
CPT/HCPCS: 36415; 76000-TC-FY; 80053; 81003; 82962; 83605; 83735; 84100; 85025; 87040; 87086; 94760; C1758; C1769; C2617; C9803-CS; G0378; U0003; U0005

== ENCOUNTER 2023-08-22 06:37 | Day surgery (SDC) | payer OTHER ==
[2023-08-20 16:13] VITALS: BMI 24.0
[2023-08-22] MEDS: PHENYLEPHRINE 2.5% OPTHALMIC DROP 2ML BOTTLE ONE (07:05)
[2023-08-22] MEDS: TROPICAMIDE 1% OPHTH SOLN 15 ML BOTTLE ONE (07:05)
[2023-08-22] MEDS: CIPROFLOXACIN 0.3% EYE DROPS 5 ML BOTTLE ONE (07:05)
[2023-08-22] MEDS: CYCLOPENTOLATE 2% OPHTH SOLN 2 ML BOTTLE ONE (07:05)
[2023-08-22] MEDS ORDERED: EPINEPHrine/PF 1 MG/1 ML (1:1,000) AMPULE ONE (07:17)
[2023-08-22] MEDS ORDERED: NEO/POLYMYX B SULF/DEXAMETH OPHTHALMIC 5ML BOTTLE ONE ×2 (07:18→07:20)
[2023-08-22] MEDS ORDERED: CARBACHOL 0.01% INTRA-OCULAR 1.5 ML VIAL ONE (07:18)
[2023-08-22] MEDS ORDERED: BSS (NA/CA/MG/K) BALANCED SALT SOLUTION OPHTH SOLN 15 ML BOTTLE ONE (07:18)
[2023-08-22] MEDS ORDERED: LIDOCAINE 1% P/F 10 MG/ML VIAL ONE (07:18)
[2023-08-22] MEDS ORDERED: TETRACAINE 0.5% OPHTH SOLN 2 ML BOTTLE ONE (07:18)
[2023-08-22] MEDS ORDERED: MIDAZOLAM HCL 2 MG/2 ML SINGLE DOSE VIAL ONE (08:05)
[2023-08-22] MEDS ORDERED: ONDANSETRON 4 MG/2 ML VIAL ONE (08:05)
[2023-08-22 08:49] VITALS: RESP 18; TEMP 98
[2023-08-22 09:04] VITALS: BP 132/57; PULSE 58
== END 2023-08-22 09:15 | disposition home or self-care (01) ==
LOC: FASU 06:37
PROVIDERS: ATTEND Ophthalmology
PROC: 08RJ3JZ Replacement of Right Lens with Synthetic Substitute, Percutaneous Approach (ICD-10-PCS; principal; 2023-08-22 08:25)
DX: H26.8 Other specified cataract (principal)
CPT/HCPCS: 66984; V2632; 82962